=== PATIENT | male | born 1945 | race Caucasian/White ===

== ENCOUNTER → 2018-04-05 07:21 | Outpatient (CLI) | payer MEDICARE, OTHER, SELFPAY ==
[2018-04-05 07:56] LABS: Add Manual Diff / Slide Review NO; Basophils Percent Auto 0.7 % (0-2); Eosinophils Percent Auto 2.6 % (2-4); Hematocrit 40.9 % (41-53); Hemoglobin 13.3 g/dL (13.5-17.5); Lymphocytes Percent Auto 24.4 % (25-40); Mean Corpuscular HGB Conc 32.4 % (30-36); Mean Corpuscular Hemoglobin 25.4 PG (26-34); Mean Corpuscular Volume 78.2 fL (80-100); Monocytes Percent Auto 9.2 % (3-14); Neutrophils Absolute Auto 4600 /uL (3000-5900); Neutrophils Percent Auto 63.1 % (50-75); Platelet Count 215 X10^3/uL (150-400); Red Blood Cell Count 5.23 X10^6/uL (4.5-5.9); Red Cell Distribution Width 15.7 % (11.6-14.8); White Blood Cell Count 7.3 X10^3/uL (4.5-11.0)
[2018-04-05 09:33] LABS: Alanine Aminotransferase 29 IU/L (21-72); Albumin 4.1 g/dL (3.5-5.0); Albumin Globulin Ratio 1.6 (1.0-2.8); Alkaline Phosphatase 80 U/L (38-126); Aspartate Aminotransferase 22 IU/L (17-59); Bilirubin Total 0.5 mg/dL (0.2-1.3); Blood Urea Nitrogen 20 mg/dL (9-20); Calcium 9.4 mg/dL (8.4-10.2); Carbon Dioxide 28 mmol/L (22-32); Chloride 103 mmol/L (98-107); Cholesterol 193 mg/dL (140-199); Estimated Glomerular Filt Rate > 60.0 mL/min (>60); Globulin 2.6 g/dL (1.7-4.1); Glucose 96 mg/dL (80-110); HDL Cholesterol 38 mg/dL (40-60); HEMOLYSIS < 15 (0-50); LDL Cholesterol Calculated 126 mg/dL (<100); Potassium 4.5 mmol/L (3.4-5.1); Sodium 141 mmol/L (137-145); Total Protein 6.7 g/dL (6.3-8.2); Triglycerides 145 mg/dL (35-150)
[2018-04-05 09:57] LABS: Prostate Specific Antigen 0.746 ng/mL (0.10-4.00)
== END ==
PROVIDERS: PCP Family Medicine; Visit Provider Family Medicine
DX: E78.5 Hyperlipidemia, unspecified (principal); Z12.5 Encounter for screening for malignant neoplasm of prostate
CPT/HCPCS: 36415; 80053; 80061; 84153; 85025

== ENCOUNTER → 2019-01-06 07:48 | Outpatient (CLI) | payer MEDICARE, OTHER, SELFPAY ==
[2019-01-06 08:22] LABS: Hematocrit 47.9 % (41-53); Hemoglobin 16.2 g/dL (13.5-17.5); Mean Corpuscular HGB Conc 33.7 % (30-36); Mean Corpuscular Hemoglobin 28.3 PG (26-34); Platelet Count 211 X10^3/uL (150-400); Red Cell Distribution Width 14.8 % (11.6-14.8); White Blood Cell Count 6.7 X10^3/uL (4.5-11.0)
[2019-01-06 08:42] LABS: HEMOLYSIS < 15 (0-50); Iron 129 ug/dL (49-181)
[2019-01-06 08:45] LABS: Alanine Aminotransferase 40 IU/L (21-72); Albumin 4.4 g/dL (3.5-5.0); Albumin Globulin Ratio 1.5 (1.0-2.8); Alkaline Phosphatase 85 U/L (38-126); Aspartate Aminotransferase 29 IU/L (17-59); BUN Creatinine Ratio 22.2 (6-22); Bilirubin Total 0.9 mg/dL (0.2-1.3); Blood Urea Nitrogen 20 mg/dL (9-20); Calcium 9.3 mg/dL (8.4-10.2); Carbon Dioxide 26 mmol/L (22-32); Chloride 105 mmol/L (98-107); Estimated Glomerular Filt Rate > 60.0 mL/min (>60); Globulin 2.9 g/dL (1.7-4.1); Glucose 105 mg/dL (80-110); HEMOLYSIS < 15 (0-50); Potassium 4.2 mmol/L (3.4-5.1); Sodium 141 mmol/L (137-145); Total Protein 7.3 g/dL (6.3-8.2)
[2019-01-06 08:59] LABS: Vitamin D 25 Hydroxy (D3) 33.8 ng/mL (30.0-100.0)
[2019-01-06 09:14] LABS: Prostate Specific Antigen 0.703 ng/mL (0.10-4.00)
[2019-01-06 09:25] LABS: Percent Iron Saturation 32 % (20-50); Total Iron Binding Capacity 401 ug/dL (261-462); Transferrin 320 mg/dL (206-381)
[2019-01-06 09:41] LABS: Ferritin 40.3 ng/mL (17.9-464)
== END ==
PROVIDERS: PCP Family Medicine; Visit Provider Student in an Organized Health Care Education/Training Program
DX: E55.9 Vitamin D deficiency, unspecified (principal); N40.0 Benign prostatic hyperplasia without lower urinary tract symptoms; Z86.39 Personal history of other endocrine, nutritional and metabolic disease; E78.5 Hyperlipidemia, unspecified; I10 Essential (primary) hypertension; K21.9 Gastro-esophageal reflux disease without esophagitis; Z79.899 Other long term (current) drug therapy
CPT/HCPCS: 36415; 80053; 82306; 82728; 83540; 83550; 84153; 85027

== ENCOUNTER 2019-03-20 11:30 | Emergency (ER) | payer MEDICARE, OTHER, SELFPAY ==
[2019-03-20 11:33] VITALS: BP 148/64; PULSE 120; RESP 20; TEMP 36.8; O2SAT 97; BMI 31.3
[2019-03-20] MEDS: EPINEPHrine 1 MG/ML AMPUL 0.3 MG IM (11:45)
[2019-03-20] MEDS: diphenhydrAMINE 50 MG/ML VIAL IV (11:45)
[2019-03-20] MEDS: DEXAMETHASONE 10 MG/ML VIAL 20 MG IV (11:45)
[2019-03-20] MEDS: FAMOTIDINE 20 MG/50 ML PIGGYBACK 200 MG IV (11:45)
--- NOTE | 2019-03-20 11:57 | ED.ALLEREA ---
HPI - Allergic Reaction General Chief complaint: Allergic Reaction Stated complaint: STUNG BY THREE BEES, ALLERGIC Time Seen by Provider: 03/20/19 11:43 Source: patient Mode of arrival: ambulatory Limitations: no limitations History of Present Illness HPI narrative: Patient comes emergency department complaining of itching over his whole body after being stung by 3 bees. Patient states he has a history of a more severe bee sting allergy with swelling of the oropharyngeal structures about 12 years ago. He does note however that that bee sting was on his face. Patient states that the sting happened approximately 30 minutes ago, and that he has not had any feeling of swelling in his throat, lips, or tongue. He has not noticed a rash. Patient states he was feeling just fine prior to the incident. No nausea or vomiting. No chest pain or shortness of breath. No lightheadedness. No other complaints at this time. No other allergies that he knows of. Related Data Home Medications Medication Instructions Recorded Confirmed Coenzyme Q10 (#CO Q-10) 200 mg PO QDAY #0 07/01/11 01/13/19 Cu/Se/Vit A/Vit C/Vit E/Zinc 1 tab PO QDAY #0 07/01/11 01/13/19 (#OCUVITE) Fish Oil (#OMEGA-3 FISH OIL) 1,200 mg PO QDAY #0 08/07/11 01/13/19 Previous Rx's Medication Instructions Recorded fluticasone propionate [Flovent 2 puff INH BID #1 inh 09/11/17 HFA] albuterol sulfate HFA 90 1 puff INHALATION Q6H #6.7 gram 02/09/18 mcg/actuation aerosol inhaler esomeprazole magnesium 20 mg 20 mg PO DAILY #30 cap 02/09/18 capsule,delayed release meloxicam 15 mg tablet 15 mg PO DAILY #30 tab 02/09/18 pravastatin 80 mg tablet 80 mg PO QDAY #90 tab 04/16/18 baclofen 10 mg tablet 10 mg PO BID PRN #60 tab 08/03/18 prednisone 60 mg PO DAILY #9 tab 03/20/19 Allergies Allergy/AdvReac Type Severity Reaction Status Date / Time bee venom protein (honey bee) Allergy Severe TROUBLE Verified 03/20/19 12:11 [BEE VENOM PROTEIN (HONEY BREATHING BEE)] Review of Systems Constitutional Denies chills, Denies fever(s), Denies lethargy and Denies weakness Eyes Denies change in vision, Denies eye discharge, Denies irritation and Denies loss of vision ENT Ears, Nose, Mouth, and Throat: Denies change in voice, Denies neck pain and Denies sore throat Cardiovascular Denies chest pain, Denies irregular heart rhythm, Denies lightheadedness, Denies palpitations, Denies dyspnea, Denies dyspnea on exertion and Denies orthopnea Respiratory Denies cough, Denies dyspnea, Denies dyspnea on exertion and Denies wheezing Gastrointestinal Gastrointestinal: Denies abdominal pain, Denies change in bowel habits, Denies diarrhea, Denies nausea and Denies vomiting Genitourinary Denies hematuria, Denies flank pain, Denies urinary incontinence and Denies urinary urgency Musculoskeletal Denies neck pain Integumentary/Breasts Reports pruritus, Denies erythema, Denies rash and Denies wounds Neurologic Denies confusion, Denies loss of vision and Denies weakness Psychiatric Denies anxiety, Denies confusion, Denies depression, Denies homicidal ideation and Denies suicidal ideation Endocrine Denies palpitations Hematologic/Lymphatic Denies easy bruising Allergic/Immunologic Denies wheezing [facility] Medical History History of iron deficiency (Chronic) Right wrist pain (Chronic) Ear canal dryness (Chronic) COPD (chronic obstructive pulmonary disease) (Chronic 2012) Hearing loss (Chronic) Tinnitus (Chronic) Chronic low back pain (Chronic) Hyperlipidemia (Chronic) GERD (gastroesophageal reflux disease) (Chronic) Gastric ulcer (Resolved) Vitreous detachment (Resolved) Polymyalgia rheumatica (Suspected 05/25/14) Allergic rhinitis (Chronic Unknown) BPH (benign prostatic hyperplasia) (Chronic Unknown) Chronic back pain (Chronic ~1970) GERD (gastroesophageal reflux disease) (Chronic 1999) Hearing loss (Chronic 1966) Hyperlipemia (Chronic Unknown) Osteoarthritis (Chronic Unknown) Polymyalgia rheumatica (Chronic 2014) Rheumatoid arthritis (Chronic 2007) Sleep apnea (Chronic Unknown) Tinnitus of both ears (Chronic 1966) Chickenpox (Resolved 1953) Colon polyps (Resolved 1997) Measles (Resolved 1954) Mumps (Resolved 1955) Surgical History History of surgery on arm (Acute) History of carpal tunnel release (Resolved 2015) History of vasectomy Hx of transurethral resection of prostate (Resolved 2010) Family History Mother Heart disease Father No problems noted. Social History marital status: household members: spouse lives independently: Yes education level: college Smoking Status: Former smoker alcohol intake: former substance use type: does not use Family History Mother Heart disease Father No problems noted. Social History marital status: household members: spouse lives independently: Yes education level: college Smoking Status: Former smoker alcohol intake: former substance use type: does not use Exam Initial Vital Signs Initial Vital Signs: Vital Signs Temperature 98.3 F 03/20/19 11:33 Pulse Rate 120 H 03/20/19 11:33 Respiratory Rate 20 03/20/19 11:33 Blood Pressure 148/64 H 03/20/19 11:33 Pulse Oximetry 97 03/20/19 11:33 Const General: cooperative and well developed Nutritional Appearance: well nourished Orientation: alert, awake, oriented x3 and not confused [facility] Head: normocephalic and atraumatic Ears: external ears normal Nose: external nose normal and No nasal discharge Face and sinus: face symmetric and No dry mucous membranes Mouth: oral mucosae normal and moist mucous membranes Teeth and gingiva: dentition normal Throat: tonsils normal and uvula midline (No edema) Eyes General: appearance normal, both eyes and all related structures Eyelids: eyelids normal Conjunctivae: conjunctivae normal Sclera: sclerae normal Pupils: PERRL EOM: EOM intact bilaterally Neck Neck: normal visual inspection, trachea midline, No lymphadenopathy, No midline deformity and No JVD Lymphatic: No lymphedema Chest Chest: normal inspection of the chest Resp Effort & Inspection: normal respiratory effort, able to speak in complete sentences, no respiratory distress and no use of accessory muscles Auscultation: clear to auscultation bilaterally, no rales, no rhonchi and no wheezes Cardio Rate: regular rate Rhythm: regular rhythm Heart Sounds: no click, no gallops, no murmurs and no rubs Pulses: normal peripheral pulses GI Inspection: non-distended Palpation: soft, no hepatosplenomegaly, No guarding, No pulsatile mass and No tender Auscultation: normal bowel sounds Back/Spine/Pelvis Back: No CVA tenderness Cervical Spine: cervical ROM normal and No pain with cervical ROM Thoracic/Lumbar Spine: thoracic and lumbar spine normal to inspection Skin General: no rashes or lesions noted, No jaundice and No petechiae Neuro General: alert, oriented x3, gait normal and no focal motor deficits Speech: speech normal Extrem General: full ROM, no clubbing, cyanosis or edema, no pedal edema and no calf tenderness Psych Appearance: well kempt Mental Status: mental status grossly normal Attitude: cooperative Thought Content: normal and suicidality Judgment: judgment good Course Course Narrative: I did not see any evidence of impending anaphylaxis at this time, but given the patient's history of this with bee sting, I did decide to treat him with IV Benadryl, Decadron, Pepcid, and IM epi, as a precaution. The patient was observed in the emergency department, with no worsening of symptoms. I did prescribe him prednisone, and he may continue to take [id number] Benadryl, as needed for symptoms. The patient has not needed to use an EpiPen in many years, and stated that the 1 he does have is 5 years . Given that the patient did not have any evidence of an anaphylactic reaction today, even 30 minutes after this stings, and that he has not made use of or needing an EpiPen in the last 12 years, I did not feel that the patient needed an EpiPen at this time, as he does not have any other history of possible anaphylactic reaction to anything else. We have discussed home management of the symptoms, as well as the usual indications for return. Orders Ordered: Discontinued Medications Dexamethasone (Decadron) 20 mg IV NOW ONE Stop: 03/20/19 11:58 Last Admin: 03/20/19 11:45 Dose: 20 mg Diphenhydramine HCl (Benadryl) 50 mg IV NOW ONE Stop: 03/20/19 11:59 Last Admin: 03/20/19 11:45 Dose: 50 mg Epinephrine HCl (Adrenalin) 0.3 mg IM NOW ONE Stop: 03/20/19 12:00 Last Admin: 03/20/19 11:45 Dose: 0.3 mg Famotidine (Pepcid) 20 mg in 50 mls @ 200 mls/hr IV NOW ONE Stop: 03/20/19 12:12 Last Infusion: 03/20/19 12:15 Dose: 0 mls/hr Admin: 03/20/19 11:45 Dose: 200 mls/hr Vital Signs - 8 hr 03/20/19 11:33 03/20/19 12:18 03/20/19 13:08 Temperature 98.3 F Pulse Rate 120 H 91 H 85 Respiratory Rate 20 15 Blood Pressure 148/64 H Blood Pressure [Left Arm] 98/74 88/56 L Pulse Oximetry 97 95 97 03/20/19 13:13 Temperature Pulse Rate 86 Respiratory Rate 16 Blood Pressure 109/78 Blood Pressure [Left Arm] Pulse Oximetry 99 MDM - Allergic Reaction Medical Records Attestation: I reviewed the patient's medical records. Discharge Plan Departure Patient Disposition: Home Clinical Impression: Allergic reaction Qualifiers: Encounter type: initial encounter Qualified Code(s): T78.40XA - Allergy, unspecified, initial encounter Discharge Date/Time: 03/20/19 13:15 Interventions: ED Discharge Assessment Last Done: 03/20/19 13:13 Instructions: DI for General Allergic Reactions Activity Restrictions/Additional Instructions: Your prescription for prednisone has been sent to [facility]. You may take this and Benadryl 25 mg every 6 hours, until your symptoms resolve. Prescriptions: New prednisone 20 mg tablet 60 mg PO DAILY Qty: 9 RF: 0 No Action albuterol sulfate [Ventolin HFA] 90 mcg/actuation HFA aerosol inhaler 1 puff INHALATION Q6H Qty: 6.7 RF: 0 esomeprazole magnesium [Nexium] 20 mg capsule,delayed release(DR/EC) 20 mg PO DAILY Qty: 30 RF: 0 meloxicam 15 mg tablet 15 mg PO DAILY Qty: 30 RF: 5 Coenzyme Q10 (#CO Q-10) 200 mg PO QDAY Qty: 0 RF: 0 Cu/Se/Vit A/Vit C/Vit E/Zinc (#OCUVITE) 1 tab PO QDAY Qty: 0 RF: 0 Fish Oil (#OMEGA-3 FISH OIL) 1,200 mg PO QDAY Qty: 0 RF: 0 fluticasone propionate [Flovent HFA] 12 GM HFA aerosol inhaler 2 puff INH BID Qty: 1 RF: 0 pravastatin [Pravachol] 80 mg tablet 80 mg PO QDAY Qty: 90 RF: 3 baclofen 10 mg tablet 10 mg PO BID PRN (Reason: muscle spasm) Qty: 60 RF: 5 Referrals: Karsten Whittaker MD [Primary Care Provider] -
[2019-03-20 12:18] VITALS: BP 98/74; PULSE 91; O2SAT 95
[2019-03-20 13:08] VITALS: BP 88/56; PULSE 85; RESP 15; O2SAT 97
[2019-03-20 13:13] VITALS: BP 109/78; PULSE 86; RESP 16; O2SAT 99
== END 2019-03-20 13:15 | disposition home or self-care (01) ==
PROVIDERS: Emergency Provider Emergency Medicine; PCP Student in an Organized Health Care Education/Training Program
DX: T78.40XA Allergy, unspecified, initial encounter (principal)
CPT/HCPCS: 96365; 96372; 96375; 99283; 99284; J0171; J1100; J1200

== ENCOUNTER 2019-08-18 06:37 | Emergency (ER) | payer MEDICARE, OTHER, SELFPAY ==
[2019-08-18 06:52] VITALS: BP 132/85; PULSE 84; RESP 22; O2SAT 94; BMI 30.8
--- NOTE | 2019-08-18 07:12 | ED.SOB ---
HPI - SOB/Dyspnea General Chief Complaint: Shortness of Breath/Dyspnea Stated Complaint: has bronchitis, short of breath feet swelling Time Seen by Provider: 08/18/19 07:09 Source: patient Mode of arrival: Ambulatory Limitations: no limitations History of Present Illness HPI Narrative: Patient is a 74-year-old male with history of COPD presenting with cough ongoing for the last week and half. He says he has is clear phlegm he was seen at the walk-in clinic and finished azithromycin yesterday. He has really got any better. He is more short of breath is when he walks he denies any body aches or fevers. He says that he has had lower extremity edema as well and positive orthopnea at night. For the last week he needed to sleep sitting up. He denies any chest pain he has no prior history of congestive heart failure coronary artery disease. MD Complaint: shortness of breath and cough Onset (ago): week(s) Relieving factors: nothing Exacerbating factors: nothing Known history of: COPD Treatment prior to arrival: none Related Data Home oxygen amount: none Home Medications Medication Instructions Recorded Confirmed Coenzyme Q10 (#CO Q-10) 200 mg PO QDAY #0 07/01/11 08/11/19 Cu/Se/Vit A/Vit C/Vit E/Zinc 1 tab PO QDAY #0 07/01/11 08/11/19 (#OCUVITE) Fish Oil (#OMEGA-3 FISH OIL) 1,200 mg PO QDAY #0 08/07/11 08/11/19 ibuprofen 800 mg tablet 800 mg PO Q8H 08/02/19 08/11/19 Previous Rx's Medication Instructions Recorded fluticasone propionate [Flovent 2 puff INH BID #1 inh 09/11/17 HFA] albuterol sulfate 90 mcg/actuation 1 puff INHALATION Q6H #6.7 gram 02/09/18 aerosol inhaler esomeprazole magnesium 20 mg 20 mg PO DAILY #30 cap 02/09/18 capsule,delayed release pravastatin 80 mg tablet 80 mg PO QDAY #90 tab 04/22/19 diclofenac sodium 1 % topical gel 2 gram TOP QID #100 gram 08/02/19 albuterol sulfate 2.5 mg INHALATION Q4-6H PRN #75 ml 08/11/19 albuterol sulfate 90 mcg/actuation 2 puff INHALATION Q4-6H PRN #8 gram 08/11/19 aerosol inhaler azithromycin 250 mg tablet See Rx Instructions PO .COMPLEX #6 08/11/19 tab prednisone 50 mg PO DAILY #5 tab 08/18/19 Allergies Allergy/AdvReac Type Severity Reaction Status Date / Time bee venom protein (honey bee) Allergy Severe TROUBLE Verified 08/18/19 06:52 [BEE VENOM PROTEIN (HONEY BREATHING BEE)] Review of Systems Review of Systems Narrative: GENERAL: Denies chills, fatigue, malaise, fever, sweats, travel HEENT: Denies sinus pain, ear pain, sore throat, difficulty swallowing, neck pain RESPIRATORY: See HPI CARDIOVASCULAR: Denies chest pain, palpitations, orthopnea, edema GASTROINTESTINAL: Denies nausea, vomiting, abdominal pain, diarrhea, constipation, melena. : Denies dysuria, frequency, incontinence, hematuria, urinary retention, flank pain. MUSCULOSKELETAL: Denies weakness, joint pain, or bony pain SKIN: No rash, no erythema, no pruritus NEUROLOGIC: Denies weakness, dizziness, headache, numbness, change in speech, confusion PSYCHIATRIC: No concerning psychosocial issues. 12 point review of systems is negative except for those stated above and HPI Patient History Medical History Allergic rhinitis (Chronic Unknown) BPH (benign prostatic hyperplasia) (Chronic Unknown) Chickenpox (Resolved 1953) Chronic back pain (Chronic ~1970) Chronic low back pain (Chronic) Colon polyps (Resolved 1997) COPD (chronic obstructive pulmonary disease) (Chronic 2012) Ear canal dryness (Chronic) Gastric ulcer (Resolved) GERD (gastroesophageal reflux disease) (Chronic 1999) GERD (gastroesophageal reflux disease) (Chronic) Hearing loss (Chronic 1967) Hearing loss (Chronic) History of iron deficiency (Chronic) Hyperlipemia (Chronic Unknown) Hyperlipidemia (Chronic) Measles (Resolved 1954) Mumps (Resolved 1955) Osteoarthritis (Chronic Unknown) Polymyalgia rheumatica (Suspected 05/25/14) Polymyalgia rheumatica (Chronic 2013) Rheumatoid arthritis (Chronic 2007) Right wrist pain (Chronic) Sleep apnea (Chronic Unknown) Tinnitus (Chronic) Tinnitus of both ears (Chronic 1966) Vitreous detachment (Resolved) Surgical History History of carpal tunnel release (Resolved 2016) History of surgery on arm (Acute) History of vasectomy Hx of transurethral resection of prostate (Resolved 2010) Family History Mother Heart disease Father No problems noted. Social History marital status: household members: spouse lives independently: Yes education level: college Smoking Status: Former smoker alcohol intake: former substance use type: does not use Smoking Status: Former smoker alcohol intake frequency: a few times a month Substance Use Type: does not use Exam Initial Vital Signs Initial Vital Signs: Vital Signs Pulse Rate 84 08/18/19 06:52 Respiratory Rate 22 08/18/19 06:52 Blood Pressure 132/85 08/18/19 06:52 Pulse Oximetry 94 08/18/19 06:52 GENERAL: Well-appearing, well-nourished and in no acute distress. HEENT: Head atraumatic,EOMI, pupils reactive, face symmetric CARDIOVASCULAR: Regular rate and rhythm without murmurs, rubs or gallops. RESPIRATORY: speaks in full sentences wheezing bilaterally no tachypnea respiratory distress ABDOMEN: Soft, nontender. Normoactive bowel sounds all 4 quadrants. No guarding or rebound.ss EXTREMITIES: Normal range of motion, no clubbing or edema. Neurovascularly intact NEUROLOGICAL: Alert and oriented x4.Normal gait and speech. Cranial nerves II through XII grossly intact. SKIN: Warm, dry, no laceration, no petechiae, no rashes or lesions. Course Orders Ordered: ED Orders 08/18/19 07:05 B Type Natriuretic Peptide Stat Complete Blood Count AUTO DIFF Stat Comprehensive Metabolic Panel Stat Magnesium Stat Procalcitonin Stat Troponin & CK Cardiac Panel Stat 08/18/19 07:22 Consult to Respiratory Therapy Evaluate & Treat XR chest 2V Stat Discontinued Medications Albuterol/Ipratropium (Duoneb) 3 ml INH NOW ONE Stop: 08/18/19 07:22 Last Admin: 08/18/19 07:35 Dose: 3 ml Documented by: FERMIN Methylprednisolone (Solu-Medrol 125 Mg Vial) 125 mg IV NOW ONE Stop: 08/18/19 07:22 Last Admin: 08/18/19 07:33 Dose: 125 mg Documented by: BROOKE Vital Signs Vital signs: Vital Signs - 8 hr 08/18/19 06:52 08/18/19 07:35 08/18/19 08:30 Pulse Rate 84 87 Respiratory Rate 22 16 16 Blood Pressure 132/85 Blood Pressure [Left Arm] 116/67 Pulse Oximetry 94 96 95 MDM - SOB/Dyspnea Lab Data Attestation: I reviewed the patient's lab results. Result diagrams: 08/18/19 07:05 08/18/19 07:05 Labs: Lab Results 08/18/19 08/18/19 08/18/19 Range/Units 07:05 07:05 07:05 WBC 6.5 (4.5-11.0) X10^3/uL RBC 5.25 (4.5-5.9) X10^6/uL Hgb 14.9 (13.5-17.5) g/dL Hct 44.5 (41-53) % MCV 84.6 (80-100) fL MCH 28.4 (26-34) PG MCHC 33.6 (30-36) % RDW 14.4 (11.6-14.8) % Plt Count 183 (150-400) X10^3/uL Neut % (Auto) 57.5 (50-75) % Lymph % (Auto) 22.7 L (25-40) % [place] % (Auto) 8.6 (3-14) % Eos % (Auto) 10.0 H (2-4) % Baso % (Auto) 1.2 (0-2) % Neut # (Auto) 3700 (6686-0637) /uL Lymph # (Auto) 1500 (9021-3080) /uL [place] # (Auto) 600 (0-900) /uL Eos # (Auto) 600 H (0-450) /uL Baso # (Auto) 100 (0-100) /uL Sodium 140 (137-145) mmol/L Potassium 3.9 (3.4-5.1) mmol/L Chloride 106 (98-107) mmol/L Carbon Dioxide 26 (22-32) mmol/L BUN 22 H (9-20) mg/dL Creatinine 0.70 (0.66-1.25) mg/dL Estimated GFR > 60.0 (>60) mL/min BUN/Creatinine Ratio 31.4 H (6-22) Glucose 106 (80-110) mg/dL Calcium 9.2 (8.4-10.2) mg/dL Magnesium 2.0 (1.6-2.3) mg/dL Total Bilirubin 0.6 (0.2-1.3) mg/dL AST 29 (17-59) IU/L ALT 27 (<50) IU/L Alkaline Phosphatase 83 (38-126) U/L Total Creatine Kinase 237 H (55-170) U/L CK-MB (CK-2) 1.85 (<2.37) ng/mL CK-MB (CK-2) Rel Index 0.8 L (1.5-5.0) % Troponin I < 0.012 (0.01-0.034) ng/mL B-Natriuretic Peptide < 100 (<100) Total Protein 6.6 (6.3-8.2) g/dL Albumin 4.1 (3.5-5.0) g/dL Globulin 2.5 (1.7-4.1) g/dL Albumin/Globulin Ratio 1.6 (1.0-2.8) Procalcitonin < 0.05 (<0.5) ng/mL Imaging Data Chest x-ray: Radiologist's Impression: PROCEDURE: XR CHEST 2V INDICATIONS: sob with cough TECHNIQUE: 2 views of the chest were acquired. COMPARISON: [facility], CHEST 2 VIEW, 09/11/2017, 18:54. FINDINGS: Surgical changes and devices: None. Lungs and pleura: Lungs are clear. No pleural effusions or pneumothorax. Mediastinum: Mediastinal contours are normal. Mildly prominent central pulmonary arteries. No central venous congestion. Heart size is normal. Bones and chest wall: No suspicious bony abnormalities. Soft tissues appear unremarkable. IMPRESSION: 1. Mild hyperinflation suggesting asthma or emphysema. 2. No acute process. Dictated by: Zoraida Plascencia M.D. on 08/18/2019 at 8:05 ECG Data Attestation: I personally reviewed and interpreted this ECG as follows: Prior ECG tracings: available for review Interpretation: Normal sinus rhythm rate 78 p.r. interval 177 QRS [address] elevation depression or T-wave inversion MDM Narrative Medical decision making narrative: The patient had wheezing which improved with bronchodilators. He was placed on azithromycin and just finished procalcitonin is negative no leukocytosis. Will place him on prednisone for COPD exacerbation. Discharge Plan Departure Patient Disposition: Home Clinical Impression: COPD exacerbation Discharge Date/Time: 08/18/19 09:07 Activity Restrictions/Additional Instructions: *You have been diagnosed with COPD exacerbation *What to do: No sign of pneumonia on x-ray at this time no need for repeat antibiotics blood work is overall reassuring. *Continue to take medications as directed Albuterol inhaler 1-2 puffs every 4 hours if needed for coughing or shortness of Prednisone 50 mg once a day start tomorrow for the next 5 days---> [facility] [place] *Follow up with your primary care provider in 2-3 days *Return to ER if you should have increasing shortness of breath chest pain or any new, worsening or concerning symptoms Prescriptions: New prednisone 50 mg tablet 50 mg PO DAILY Qty: 5 RF: 0 No Action albuterol sulfate [Ventolin HFA] 90 mcg/actuation HFA aerosol inhaler 2 puff INHALATION Q4-6H PRN (Reason: shortness of breath or wheezing) Qty: 8 RF: 0 albuterol sulfate 2.5 mg /3 mL (0.083 %) solution for nebulization 2.5 mg INHALATION Q4-6H PRN (Reason: shortness of breath or wheezing) Qty: 75 RF: 0 azithromycin 250 mg tablet See Rx Instructions PO .COMPLEX Qty: 6 RF: 0 albuterol sulfate [Ventolin HFA] 90 mcg/actuation HFA aerosol inhaler 1 puff INHALATION Q6H Qty: 6.7 RF: 0 esomeprazole magnesium [Nexium] 20 mg capsule,delayed release(DR/EC) 20 mg PO DAILY Qty: 30 RF: 0 Coenzyme Q10 (#CO Q-10) 200 mg PO QDAY Qty: 0 RF: 0 Cu/Se/Vit A/Vit C/Vit E/Zinc (#OCUVITE) 1 tab PO QDAY Qty: 0 RF: 0 Fish Oil (#OMEGA-3 FISH OIL) 1,200 mg PO QDAY Qty: 0 RF: 0 fluticasone propionate [Flovent HFA] 12 GM HFA aerosol inhaler 2 puff INH BID Qty: 1 RF: 0 pravastatin [Pravachol] 80 mg tablet 80 mg PO QDAY Qty: 90 RF: 3 diclofenac sodium 1 % gel 2 gram TOP QID Qty: 100 RF: 0 ibuprofen 800 mg tablet 800 mg PO Q8H RF: 0 Referrals: Karsten Whittaker MD [Primary Care Provider] -
[2019-08-18] MEDS: ALBUTEROL/IPRATROPIUM 3 ML AMPUL INH ×2 (07:20→07:35)
--- NOTE | 2019-08-18 07:22 | DI.RAD.S_ITS ---
PROCEDURE: XR CHEST 2V INDICATIONS: sob with cough TECHNIQUE: 2 views of the chest were acquired. COMPARISON: [facility], , CHEST 2 VIEW, 09/11/2017, 18:54. FINDINGS: Surgical changes and devices: None. Lungs and pleura: Lungs are clear. No pleural effusions or pneumothorax. Mediastinum: Mediastinal contours are normal. Mildly prominent central pulmonary arteries. No central venous congestion. Heart size is normal. Bones and chest wall: No suspicious bony abnormalities. Soft tissues appear unremarkable. IMPRESSION: 1. Mild hyperinflation suggesting asthma or emphysema. 2. No acute process. Dictated by: Zoraida Plascencia M.D. on 08/18/2019 at 8:05 Approved by: Zoraida Plascencia M.D. on 08/18/2019 at 8:07
[2019-08-18] MEDS: methylPREDNISolone 125 MG/2 ML VIAL IV (07:33)
[2019-08-18 07:35] VITALS: RESP 16; O2SAT 96
[2019-08-18 07:36] LABS: Add Manual Diff / Slide Review NO; Basophils Absolute Auto 100 /uL (0-100); Basophils Percent Auto 1.2 % (0-2); Eosinophils Absolute Auto 600 /uL (0-450); Hematocrit 44.5 % (41-53); Hemoglobin 14.9 g/dL (13.5-17.5); Lymphocytes Absolute Auto 1500 /uL (1100-4500); Lymphocytes Percent Auto 22.7 % (25-40); Mean Corpuscular HGB Conc 33.6 % (30-36); Mean Corpuscular Hemoglobin 28.4 PG (26-34); Mean Corpuscular Volume 84.6 fL (80-100); Monocytes Absolute Auto 600 /uL (0-900); Monocytes Percent Auto 8.6 % (3-14); Neutrophils Absolute Auto 3700 /uL (1500-7000); Neutrophils Percent Auto 57.5 % (50-75); Platelet Count 183 X10^3/uL (150-400); Red Blood Cell Count 5.25 X10^6/uL (4.5-5.9); Red Cell Distribution Width 14.4 % (11.6-14.8); White Blood Cell Count 6.5 X10^3/uL (4.5-11.0)
--- NOTE | 2019-08-18 07:38 | PC.NURSE ---
Received report from [facility] Stringer. Pt reports 10 days of SOB and increased leg swelling and inability to lay flat. denies h/o CHF. Lungs with coarse exp wheeze. pt already rec'd duo x 1. Being taken for CXR at this time. Speaking in complete sentences without difficulty.
[2019-08-18 07:41] LABS: Alanine Aminotransferase 27 IU/L (<50); Albumin 4.1 g/dL (3.5-5.0); Albumin Globulin Ratio 1.6 (1.0-2.8); Alkaline Phosphatase 83 U/L (38-126); Aspartate Aminotransferase 29 IU/L (17-59); BUN Creatinine Ratio 31.4 (6-22); Bilirubin Total 0.6 mg/dL (0.2-1.3); Blood Urea Nitrogen 22 mg/dL (9-20); Calcium 9.2 mg/dL (8.4-10.2); Carbon Dioxide 26 mmol/L (22-32); Chloride 106 mmol/L (98-107); Creatine Kinase 237 U/L (55-170); Estimated Glomerular Filt Rate > 60.0 mL/min (>60); Globulin 2.5 g/dL (1.7-4.1); Glucose 106 mg/dL (80-110); HEMOLYSIS < 15 (0-50); Potassium 3.9 mmol/L (3.4-5.1); Sodium 140 mmol/L (137-145); Total Protein 6.6 g/dL (6.3-8.2)
[2019-08-18 07:51] LABS: Troponin I < 0.012 ng/mL (0.01-0.034)
[2019-08-18 07:55] LABS: CKMB % Relative Index 0.8 % (1.5-5.0); Creatine Kinase MB 1.85 ng/mL (<2.37)
[2019-08-18 08:10] LABS: Procalcitonin < 0.05 ng/mL (<0.5)
[2019-08-18 08:22] LABS: B Type Natriuretic Peptide < 100 (<100)
[2019-08-18 08:30] VITALS: BP 116/67; PULSE 87; RESP 16; O2SAT 95
== END 2019-08-18 09:07 | disposition home or self-care (01) ==
PROVIDERS: Emergency Provider Emergency Medicine; PCP Student in an Organized Health Care Education/Training Program
DX: J44.1 Chronic obstructive pulmonary disease with (acute) exacerbation (principal)
CPT/HCPCS: 36415; 71046; 80053; 82550; 82553; 83735; 83880; 84145; 84484; 85025; 93005; 94640; 96374; 99284; 99285; J2930

== ENCOUNTER 2020-01-11 08:25 | Emergency (ER) | payer MEDICARE, OTHER, SELFPAY ==
[2020-01-11 08:25] VITALS: BP 164/89; PULSE 91; RESP 18; TEMP 36.1; O2SAT 97; BMI 31.0
--- NOTE | 2020-01-11 08:47 | ED.GENADULT ---
HPI - General Adult General Chief complaint: Ear Stated complaint: Off balance, Right ear is clogged/ Headaches Time Seen by Provider: 01/11/20 08:39 Source: patient Mode of arrival: Ambulatory Limitations: no limitations History of Present Illness HPI narrative: 75-year-old male here for evaluation of what he thinks is a blocked right ear. Also having some discomfort and some balance issues. He has had this issue in the past. He does wear hearing aids. He did try cleaning it at home but was unsuccessful. He states he has had did have his ears flushed in the past and he thinks that is what needs to happen today. Related Data Home Medications Medication Instructions Recorded Confirmed Coenzyme Q10 (#CO Q-10) 200 mg PO QDAY #0 07/01/11 10/26/19 Cu/Se/Vit A/Vit C/Vit E/Zinc 1 tab PO QDAY #0 07/01/11 10/26/19 (#OCUVITE) Fish Oil (#OMEGA-3 FISH OIL) 1,200 mg PO QDAY #0 08/07/11 10/26/19 Previous Rx's Medication Instructions Recorded esomeprazole magnesium 20 mg 20 mg PO DAILY #30 cap 02/09/18 capsule,delayed release pravastatin 80 mg tablet 80 mg PO QDAY #90 tab 04/22/19 albuterol sulfate 90 mcg/actuation 2 puff INHALATION Q4-6H PRN #18 10/26/19 aerosol inhaler gram Allergies Allergy/AdvReac Type Severity Reaction Status Date / Time bee venom protein (honey bee) Allergy Severe TROUBLE Verified 10/26/19 11:21 [BEE VENOM PROTEIN (HONEY BREATHING BEE)] Review of Systems Constitutional Constitutional: Denies fever(s) and Denies headache(s) ENT Ears, Nose, Mouth, and Throat: Denies headache(s) and Reports disequilibrium Comments: Right ear fullness Cardiovascular Cardiovascular: Denies dyspnea Respiratory Respiratory: Denies dyspnea Neurologic Neurologic: Denies headache(s) and Reports disequilibrium Hematologic/Lymphatic Hematologic/Lymphatic: Denies easy bleeding and Denies easy bruising Patient History Medical History Allergic rhinitis (Chronic Unknown) BPH (benign prostatic hyperplasia) (Chronic Unknown) Chickenpox (Resolved 1953) Chronic back pain (Chronic ~1969) Chronic low back pain (Chronic) Colon polyps (Resolved 1997) COPD (chronic obstructive pulmonary disease) (Chronic 2012) Ear canal dryness (Chronic) Gastric ulcer (Resolved) GERD (gastroesophageal reflux disease) (Chronic 1999) GERD (gastroesophageal reflux disease) (Chronic) Hearing loss (Chronic 1967) Hearing loss (Chronic) History of iron deficiency (Chronic) Hyperlipemia (Chronic Unknown) Hyperlipidemia (Chronic) Measles (Resolved 1954) Mumps (Resolved 1955) Osteoarthritis (Chronic Unknown) Polymyalgia rheumatica (Suspected 05/25/14) Polymyalgia rheumatica (Chronic 2013) Rheumatoid arthritis (Chronic 2007) Right wrist pain (Chronic) Sleep apnea (Chronic Unknown) Tinnitus (Chronic) Tinnitus of both ears (Chronic 1966) Vitreous detachment (Resolved) Social History marital status: household members: spouse lives independently: Yes education level: college Smoking Status: Former smoker alcohol intake: former substance use type: does not use Smoking Status: Former smoker alcohol intake frequency: a few times a month Substance Use Type: does not use Exam Initial Vital Signs Initial Vital Signs: Vital Signs Temperature 97.0 F L 01/11/20 08:25 Pulse Rate 91 H 01/11/20 08:25 Respiratory Rate 18 01/11/20 08:25 Blood Pressure 164/89 H 01/11/20 08:25 Pulse Oximetry 97 01/11/20 08:25 Const General: cooperative and comfortable HENMT Head: normal to inspection Ears: external ears normal, EAC's normal and other (Bilateral EACs obstructed by cerumen) Resp Effort & Inspection: normal respiratory effort Skin Lesions: no lesions Rashes: no rashes Neuro General: alert, awake and oriented x3 Extrem General: normal to inspection and capillary refill normal Procedures Foreign Body EAR Location: ear canal (R) Foreign Body Suspected: other (Cerumen) TM intact pre-procedure: unable to visualize Foreign Body Removed: yes Foreign Body Removal Technique: irrigation Tympanic Membrane Intact Post Procedure: Yes Patient Tolerated Procedure: Well Course Vital Signs Vital signs: Vital Signs - 8 hr 01/11/20 08:25 Temperature 97.0 F L Pulse Rate 91 H Respiratory Rate 18 Blood Pressure 164/89 H Pulse Oximetry 97 Medical Decision Making MDM Narrative Medical decision making narrative: Patient with cerumen impaction bilaterally. After irrigation the right impaction was completely removed. The left impaction was partially removed however was able to visualize the tympanic membrane afterwards. Patient tolerated the procedure well. We discussed return precautions and follow-up instructions. He expressed understanding and agreement. Discharge Plan Departure Patient Disposition: Home Clinical Impression: Bilateral impacted cerumen Instructions: Cerumen Impaction Activity Restrictions/Additional Instructions: Your ears may be sensitive for the next 1-2 days. You may even get a small amount of bleeding. This is all normal for this type of procedure. Recommend you contact your primary care provider for follow-up. Prescriptions: No Action esomeprazole magnesium [Nexium] 20 mg capsule,delayed release(DR/EC) 20 mg PO DAILY Qty: 30 RF: 0 Coenzyme Q10 (#CO Q-10) 200 mg PO QDAY Qty: 0 RF: 0 Cu/Se/Vit A/Vit C/Vit E/Zinc (#OCUVITE) 1 tab PO QDAY Qty: 0 RF: 0 Fish Oil (#OMEGA-3 FISH OIL) 1,200 mg PO QDAY Qty: 0 RF: 0 pravastatin [Pravachol] 80 mg tablet 80 mg PO QDAY Qty: 90 RF: 3 albuterol sulfate [Ventolin HFA] 90 mcg/actuation HFA aerosol inhaler 2 puff INHALATION Q4-6H PRN (Reason: shortness of breath or wheezing) Qty: 18 RF: 11 Referrals: Karsten Whittaker MD [Primary Care Provider] -
[2020-01-11 09:20] VITALS: BP 143/81; PULSE 80; O2SAT 95
--- NOTE | 2020-01-11 09:30 | PC.NURSE ---
dr. driver used curet and nurse flushed ears with normal saline.
== END 2020-01-11 09:20 | disposition home or self-care (01) ==
PROVIDERS: Emergency Provider Emergency Medicine; PCP Student in an Organized Health Care Education/Training Program
DX: H61.23 Impacted cerumen, bilateral (principal)
CPT/HCPCS: 69209; 99283

== ENCOUNTER → 2020-04-05 11:28 | Outpatient (CLI) | payer MEDICARE, OTHER, SELFPAY ==
--- NOTE | 2020-04-05 11:31 | DI.RAD.S_ITS ---
PROCEDURE: XR HIP W PEL IF DONE LT 2V INDICATIONS: left hip pain when sitting TECHNIQUE: AP pelvis with lateral view(s) of the left hip(s). COMPARISON: None. FINDINGS: Bones: No fractures or dislocations. Pelvic ring appears intact. No suspicious bony lesions. Mild symmetric hip joint degeneration. Soft tissues: The visualized bowel gas pattern is normal. No suspicious soft tissue calcifications. IMPRESSION: Mild symmetric hip joint degeneration. Dictated by: Barbara Lewis M.D. on 04/05/2020 at 15:37 Approved by: Barbara Lewis M.D. on 04/05/2020 at 15:38
[2020-04-05 13:37] LABS: Prostate Specific Antigen 0.713 ng/mL (0.10-4.00)
[2020-04-05 13:55] LABS: Vitamin B12 > 1000 pg/mL (239-931)
== END ==
PROVIDERS: PCP Student in an Organized Health Care Education/Training Program; Referring Provider Student in an Organized Health Care Education/Training Program; Visit Provider Student in an Organized Health Care Education/Training Program
DX: M25.552 Pain in left hip (principal); Z90.79 Acquired absence of other genital organ(s); Z98.890 Other specified postprocedural states; G62.9 Polyneuropathy, unspecified
CPT/HCPCS: 36415; 73502; 82607; 84153

== ENCOUNTER → 2020-09-25 07:10 | Outpatient (CLI) | payer MEDICARE, OTHER, SELFPAY ==
[2020-09-25 09:00] LABS: Add Manual Diff / Slide Review NO; Basophils Absolute Auto 0 /uL (0-100); Basophils Percent Auto 0.4 % (0-2); Eosinophils Absolute Auto 200 /uL (0-450); Eosinophils Percent Auto 2.9 % (2-4); Hematocrit 45.2 % (41-53); Hemoglobin 15.2 g/dL (13.5-17.5); Lymphocytes Absolute Auto 1500 /uL (1100-4500); Lymphocytes Percent Auto 25.6 % (25-40); Mean Corpuscular HGB Conc 33.6 % (30-36); Mean Corpuscular Hemoglobin 28.6 PG (26-34); Mean Corpuscular Volume 85.1 fL (80-100); Monocytes Absolute Auto 600 /uL (0-900); Monocytes Percent Auto 9.8 % (3-14); Neutrophils Absolute Auto 3600 /uL (1500-7000); Neutrophils Percent Auto 61.3 % (50-75); Platelet Count 203 X10^3/uL (150-400); Red Blood Cell Count 5.31 X10^6/uL (4.5-5.9); Red Cell Distribution Width 13.8 % (11.6-14.8); White Blood Cell Count 5.9 X10^3/uL (4.5-11.0)
[2020-09-25 09:33] LABS: HEMOLYSIS < 15 (0-50)
[2020-09-25 09:35] LABS: Alanine Aminotransferase 27 IU/L (<50); Albumin 4.2 g/dL (3.5-5.0); Albumin Globulin Ratio 1.4 (1.0-2.8); Alkaline Phosphatase 75 U/L (38-126); Aspartate Aminotransferase 30 IU/L (17-59); Bilirubin Total 0.5 mg/dL (0.2-1.3); Blood Urea Nitrogen 19 mg/dL (9-20); Carbon Dioxide 27 mmol/L (22-32); Chloride 106 mmol/L (98-107); Cholesterol 198 mg/dL (140-199); Estimated Glomerular Filt Rate > 60.0 mL/min (>60); Globulin 2.9 g/dL (1.7-4.1); Glucose 100 mg/dL (80-110); HDL Cholesterol 33 mg/dL (40-60); LDL Cholesterol Calculated 135 mg/dL (<100); Potassium 3.9 mmol/L (3.4-5.1); Sodium 139 mmol/L (137-145); Total Protein 7.1 g/dL (6.3-8.2); Triglycerides 148 mg/dL (35-150)
[2020-09-25 09:44] LABS: Hemoglobin A1C% w Est Avg Glu 5.7 % (4.0-6.0)
[2020-09-25 09:56] LABS: Prostate Specific Antigen Scrn 0.757 ng/mL (0.1-4.0)
[2020-09-25 10:34] LABS: Vitamin B12 927 pg/mL (239-931)
== END ==
PROVIDERS: PCP Family Medicine; Referring Provider Family Medicine; Visit Provider Family Medicine
DX: E78.00 Pure hypercholesterolemia, unspecified (principal); Z86.39 Personal history of other endocrine, nutritional and metabolic disease; G62.9 Polyneuropathy, unspecified; M35.3 Polymyalgia rheumatica; Z12.5 Encounter for screening for malignant neoplasm of prostate; Z90.79 Acquired absence of other genital organ(s); Z98.890 Other specified postprocedural states
CPT/HCPCS: 36415; 80053; 80061; 82607; 83036; 85025; G0103

== ENCOUNTER → 2020-11-30 10:08 | Outpatient (CLI) | payer MEDICARE, OTHER, SELFPAY ==
[2020-11-30 10:47] LABS: COVID19 -Nasal RAPID Negative (Negative)
== END ==
PROVIDERS: PCP Family Medicine; Visit Provider Surgery
DX: Z20.822 Contact with and (suspected) exposure to COVID-19 (principal)
CPT/HCPCS: 87635; C9803

== ENCOUNTER 2020-12-03 08:04 | Day surgery (SDC) | payer MEDICARE, OTHER, SELFPAY ==
--- NOTE | 2020-12-03 | PATH_ITS ---
[facility] [place] Accession Number: [id number] . 01 Material submitted: . PART A: colon - CECUM POLYP PART B: rectum - RECTUM POLYP . 01 Clinical history: . SDC . 02 Diagnosis: A. Cecum, Polyp, Biopsy: Tubular adenoma. . B. Rectum, Polyp, Biopsy: Tubular adenoma. MRV 12/06/2020 1103 Local . 02 Electronically signed: . Cheri Villa MD, Pathologist NPI- [id number] . 01 Gross description: . Part A: CECUM POLYP: Received in formalin are 2 fragment(s) of wade, soft tissue measuring 0.1 x 0.1 x 0.1 cm to 0.3 x 0.3 x 0.3 cm submitted entirely in 1 cassette(s) Part B: RECTUM POLYP: Received in formalin is 1 fragment(s) of wade, soft tissue measuring 0.4 x 0.2 x 0.2 cm submitted entirely in 1 cassette(s) /FRANK 12/04/2020 1942 Local . 02 Pathologist provided ICD-10: D12.0, D12.8 . 02 CPT . 997855, [id number] Performed at: [address] [facility] [address], [place], [place] [id number] MD Darisu Hill MD Phone: [phone] Performed at: 02 [facility] [address] [place], [place] [id number] MD Cheri Villa MD Phone: [phone]
[2020-12-03 08:21] VITALS: BP 150/85; PULSE 77; RESP 16; TEMP 36.3; O2SAT 97; BMI 29.5
[2020-12-03] MEDS: LACTATED RINGERS 1,000 ML 200 ML IV (08:21)
[2020-12-03] MEDS: MIDAZOLAM 5 MG/5 ML VIAL IV (08:59)
--- NOTE | 2020-12-03 09:44 | PM.HP.1 ---
History of Present Illness History of Present Illness Date Patient Seen: 12/03/20 Time Patient Seen: 09:44 Chief complaint: SDC Narrative: The patient presents for colorectal sreening. He has had a previous colonoscopy most recently 5 years ago which was significant for benign polyps. No personal or family history of colon cancer. On further history denies any recent gastrointestinal symptoms. No nausea, vomiting, abdominal pain, loss of appetite, unexplained weight loss, change in bowel habits, diarrhea, constipation, melena, hematochezia, or bright red blood per rectum. Patient History Medical History Acute neck pain Allergic rhinitis (Unknown) Back stiffness BPH (benign prostatic hyperplasia) (Unknown) Cervical somatic dysfunction Chickenpox (1953) Chronic back pain (~1969) Chronic low back pain Colon polyps (1997) COPD (chronic obstructive pulmonary disease) (2012) Ear canal dryness Gastric ulcer GERD (gastroesophageal reflux disease) (1999) GERD (gastroesophageal reflux disease) Hearing loss (1966) Hearing loss History of iron deficiency Hyperlipemia (Unknown) Hyperlipidemia Lumbar region somatic dysfunction Measles (1954) Mumps (1955) Osteoarthritis (Unknown) Pelvic somatic dysfunction Pes planus of both feet Polymyalgia rheumatica (05/25/14) Polymyalgia rheumatica (2014) Rheumatoid arthritis (2007) Right wrist pain Sacral region somatic dysfunction Segmental and somatic dysfunction of abdomen and other regions Sleep apnea (Unknown) Somatic dysfunction of lower extremity Thoracic region somatic dysfunction Tinnitus Tinnitus of both ears (1966) Vitreous detachment Surgical History History of carpal tunnel release (2015) History of surgery on arm History of vasectomy Hx of transurethral resection of prostate (2010) Family & Social History Family History Mother Heart disease Father No problems noted. Social History: household members spouse lives independently Yes Tobacco & Substance use: Smoking Status Former smoker alcohol intake current alcohol intake frequency a few times a week Substance Use Type does not use Meds Home Medications and Allergies Home Medications Medication Instructions Recorded Confirmed Type Coenzyme Q10 (#CO Q-10) 200 mg PO QDAY #0 07/01/11 12/03/20 History Cu/Se/Vit A/Vit C/Vit E/Zinc 1 tab PO QDAY #0 07/01/11 12/03/20 History (#OCUVITE) Fish Oil (#OMEGA-3 FISH OIL) 1,200 mg PO QDAY #0 08/07/11 12/03/20 History esomeprazole magnesium 20 mg 20 mg PO DAILY #30 cap 02/09/18 12/03/20 Rx capsule,delayed release albuterol sulfate 90 mcg/actuation 2 puff INHALATION Q4-6H PRN #18 10/26/19 12/03/20 Rx aerosol inhaler gram pravastatin 80 mg tablet 80 mg PO BEDTIME #90 tab 04/16/20 12/03/20 Rx alpha lipoic acid 600 mg capsule 600 mg PO DAILY 10/02/20 12/03/20 History cholecalciferol (vitamin D3) 125 125 mcg PO DAILY 10/02/20 12/03/20 History mcg (5,000 unit) capsule ferrous sulfate 325 mg (65 mg 325 mg PO DAILY 10/02/20 12/03/20 History iron) tablet mecobalamin (vitamin B12) 1,000 1,000 mcg PO DAILY 10/02/20 12/03/20 History mcg chewable tablet turmeric root extract 500 mg 1,000 mg PO DAILY 10/02/20 12/03/20 History capsule vitamin B complex 1 cap PO DAILY 10/02/20 12/03/20 History Allergies Allergy/AdvReac Type Severity Reaction Status Date / Time bee venom protein (honey bee) Allergy Severe TROUBLE Verified 12/03/20 08:15 [BEE VENOM PROTEIN (HONEY BREATHING BEE)] Review of Systems Review of Systems ROS: Yes All systems reviewed with the patient and are negative except as otherwise documented Exam Vital Signs (past 8 hours): - 12/03/20 08:21 Temperature 97.4 F L Pulse Rate 77 Respiratory Rate 16 Blood Pressure 150/85 H Pulse Oximetry 97 Oxygen Delivery Method Room Air Narrative Exam Narrative: General-no acute distress, adult male HEENT-moist mucous membranes, no scleral icterus Neck-supple, no lymphadenopathy Chest- non labored respirations Cardiac-regular rate no peripheral edema Abdomen-soft, nontender nondistended Extremities-warm, well perfused Neurological-alert and oriented, no focal deficits Assessment & Plan Assessment & Plan narrative: The patient requires colorectal screening and colonoscopy is recommended. Technical details were discussed. Risks, benefits, alternatives explained. Risks including but not limited to myocardial infarction, aspiration, bleeding, pain, missed lesion, incomplete examination, need for further radiographic studies, colonic perforation, and need for major abdominal surgery were discussed. All questions were answered to their satisfaction, and they are in agreement with this plan.
[2020-12-03] MEDS: fentaNYL 250 MCG/5 ML INJ IV (10:13)
--- NOTE | 2020-12-03 10:22 | P.OP.ENDO_ITS ---
Operative Date/Time/Diagnoses Date of procedure: 12/03/20 Time of procedure: 10:22 Pre-op diagnosis: Personal history of colonic polyps Post-op diagnosis: same Procedure & Clinicians Study performed: Colonoscopy Polypectomy Same procedure as scheduled: Yes Indications: 75-year-old man personal history of colonic polyps last colonoscopy 5 years ago presents for routine screening. Surgeon: Donnell Landeros Procedure Notes Procedure in detail: Medications: Conscious sedation using 6mg IV midazolam and 250mcg IV of fentanyl The history and physical was performed/updated and the patient is ASA class is 2. The procedure was discussed in detail with the patient. Potential risks complications including infection, bleeding, missed diagnosis, perforation, need for surgery, and were explained. Their questions were answered and informed consent was obtained. Patient was brought to the procedure room and placed standard monitoring equipment. The patient's vital signs were monitored continuously throughout the entire procedure. Prior to starting time-out was performed. The patient was placed in the left lateral recumbent position. Procedural sedation was administered. Examination began with a thorough inspection of the perianal area there was no evidence of fissures, fistulae, external hemorrhoids or cutaneous malignancy. The colonoscopy scope was then placed into the anal canal and was advanced to the cecum, which was identified by the ileocecal valve, the appendiceal orifice and the confluence of the taenia. The scope was then slowly withdrawn examining colon thoroughly in all directions, irrigating it of any r esidual stool. 3 mm polyp in the cecum removed with biopsy forceps 5 mm polyp in the rectum removed with biopsy forceps Sigmoid diverticulosis The patient tolerated the procedure well. They will be discharged once criteria are met. The prep was of good/excellent quality. The withdrawl time was 12 minutes. The sedation time was 27 minutes. Specimen(s): other (Rectum, cecum polyps) Impression: Colonic polyps Post-procedure Recommendations: Colonscopy in 5 years Disposition: same day surgery
[2020-12-03 10:25] VITALS: BP 149/76; PULSE 71; RESP 12; TEMP 36.9; O2SAT 96
[2020-12-03 10:28] VITALS: BP 128/77; PULSE 72; RESP 12; O2SAT 96
[2020-12-03 10:33] VITALS: BP 127/76; PULSE 78; RESP 20; O2SAT 97
[2020-12-03 10:38] VITALS: BP 122/80; PULSE 75; RESP 14; O2SAT 97
[2020-12-03 10:43] VITALS: BP 117/70; PULSE 72; RESP 14; TEMP 36.9; O2SAT 96
== END 2020-12-03 11:02 | disposition home or self-care (01) ==
PROVIDERS: PCP Family Medicine; Referring Provider Family Medicine; Visit Provider Surgery
PROC: 0DJD8ZZ Inspection of Lower Intestinal Tract, Via Natural or Artificial Opening Endoscopic (ICD-10-PCS; CPT 45378; principal; 2020-12-03 09:15)
DX: Z12.11 Encounter for screening for malignant neoplasm of colon (principal); Z86.010 Personal history of colon polyps; J44.9 Chronic obstructive pulmonary disease, unspecified; K21.9 Gastro-esophageal reflux disease without esophagitis; K57.30 Diverticulosis of large intestine without perforation or abscess without bleeding; D12.0 Benign neoplasm of cecum; D12.8 Benign neoplasm of rectum
CPT/HCPCS: 45380; 99152; 99153; J2250; J3010

== ENCOUNTER → 2021-03-11 07:20 | Outpatient (CLI) | payer MEDICARE, OTHER, SELFPAY ==
[2021-03-11 08:19] LABS: Add Manual Diff / Slide Review NO; Basophils Absolute Auto 0 /uL (0-100); Basophils Percent Auto 0.5 % (0-2); Eosinophils Absolute Auto 200 /uL (0-450); Eosinophils Percent Auto 3.1 % (2-4); Hematocrit 44.6 % (41-53); Hemoglobin 14.6 g/dL (13.5-17.5); Lymphocytes Absolute Auto 1800 /uL (1100-4500); Lymphocytes Percent Auto 28.8 % (25-40); Mean Corpuscular HGB Conc 32.8 % (30-36); Mean Corpuscular Volume 85.5 fL (80-100); Monocytes Absolute Auto 600 /uL (0-900); Monocytes Percent Auto 9.4 % (3-14); Neutrophils Absolute Auto 3700 /uL (1500-7000); Neutrophils Percent Auto 58.2 % (50-75); Platelet Count 199 X10^3/uL (150-400); Red Blood Cell Count 5.22 X10^6/uL (4.5-5.9); Red Cell Distribution Width 13.8 % (11.6-14.8); White Blood Cell Count 6.4 X10^3/uL (4.5-11.0)
[2021-03-11 08:34] LABS: Hemoglobin A1C% w Est Avg Glu 5.5 % (4.0-6.0)
[2021-03-11 08:41] LABS: Alanine Aminotransferase 27 IU/L (<50); Albumin 4.3 g/dL (3.5-5.0); Albumin Globulin Ratio 1.7 (1.0-2.8); Alkaline Phosphatase 77 U/L (38-126); Aspartate Aminotransferase 28 IU/L (17-59); BUN Creatinine Ratio 23.4 (6-22); Bilirubin Total 0.6 mg/dL (0.2-1.3); Blood Urea Nitrogen 18 mg/dL (9-20); Calcium 9.7 mg/dL (8.4-10.2); Carbon Dioxide 26 mmol/L (22-32); Chloride 106 mmol/L (98-107); Cholesterol 220 mg/dL (140-199); Estimated Glomerular Filt Rate > 60.0 mL/min (>60); Globulin 2.5 g/dL (1.7-4.1); Glucose 102 mg/dL (80-110); HDL Cholesterol 45 mg/dL (40-60); HEMOLYSIS < 15 (0-50); LDL Cholesterol Calculated 139 mg/dL (<100); Potassium 4.5 mmol/L (3.4-5.1); Sodium 138 mmol/L (137-145); Total Protein 6.8 g/dL (6.3-8.2); Triglycerides 182 mg/dL (35-150)
== END ==
PROVIDERS: PCP Family Medicine; Referring Provider Family Medicine; Visit Provider Family Medicine
DX: E78.00 Pure hypercholesterolemia, unspecified (principal); Z86.39 Personal history of other endocrine, nutritional and metabolic disease; G62.9 Polyneuropathy, unspecified
CPT/HCPCS: 36415; 80053; 80061; 83036; 85025

== ENCOUNTER → 2021-06-14 07:12 | Outpatient (CLI) | payer MEDICARE, OTHER, SELFPAY ==
[2021-06-14 08:38] LABS: Add Manual Diff / Slide Review NO; Basophils Absolute Auto 0 /uL (0-100); Basophils Percent Auto 0.5 % (0-2); Eosinophils Absolute Auto 200 /uL (0-450); Eosinophils Percent Auto 2.4 % (2-4); Hematocrit 44.2 % (41-53); Hemoglobin 14.2 g/dL (13.5-17.5); Lymphocytes Absolute Auto 1400 /uL (1100-4500); Lymphocytes Percent Auto 21.5 % (25-40); Mean Corpuscular HGB Conc 32.2 % (30-36); Mean Corpuscular Hemoglobin 27.5 PG (26-34); Mean Corpuscular Volume 85.5 fL (80-100); Monocytes Absolute Auto 500 /uL (0-900); Monocytes Percent Auto 8.5 % (3-14); Neutrophils Absolute Auto 4200 /uL (1500-7000); Neutrophils Percent Auto 67.1 % (50-75); Platelet Count 210 X10^3/uL (150-400); Red Blood Cell Count 5.17 X10^6/uL (4.5-5.9); Red Cell Distribution Width 14.2 % (11.6-14.8); White Blood Cell Count 6.3 X10^3/uL (4.5-11.0)
[2021-06-14 09:38] LABS: Carbon Dioxide 29 mmol/L (22-32); Chloride 106 mmol/L (98-107); Cholesterol 159 mg/dL (140-199); HDL Cholesterol 37 mg/dL (40-60); HEMOLYSIS < 15 (0-50); LDL Cholesterol Calculated 101 mg/dL (<100); Potassium 4.1 mmol/L (3.4-5.1); Sodium 142 mmol/L (137-145); Triglycerides 103 mg/dL (35-150)
== END ==
PROVIDERS: PCP Family Medicine; Referring Provider Orthopaedic Surgery; Visit Provider Orthopaedic Surgery
DX: G62.9 Polyneuropathy, unspecified; K21.9 Gastro-esophageal reflux disease without esophagitis; Z01.812 Encounter for preprocedural laboratory examination; Z01.818 Encounter for other preprocedural examination
CPT/HCPCS: 36415; 80051; 80061; 85025

== ENCOUNTER → 2021-11-15 06:29 | Outpatient (CLI) | payer MEDICARE, OTHER, SELFPAY ==
--- NOTE | 2021-11-15 06:31 | DI.MRI.S_ITS ---
PROCEDURE: MR HEAD/BRAIN WO CON INDICATIONS: Transient global amnesia TECHNIQUE: Non-contrast axial T1 spin echo, axial T2 fast spin echo, sagittal and axial FLAIR, coronal T2 fast spin echo, axial gradient echo, axial diffusion and ADC through the brain. COMPARISON: None. FINDINGS: Image quality: Excellent. CSF spaces: Ventricles appear symmetric in size and shape. Basal cisterns are patent. No extra-axial fluid collections. Brain: No intracranial bleeds or mass effects. There is cerebral volume loss for age. There are periventricular and deep white matter chronic small vessel ischemic changes. Brainstem appears normal. Diffusion-weighted images show no acute ischemic insults. No chronic ischemic insults. Normal intravascular flow voids are present. Skull and face: Calvarial bone marrow is normal in signal. Orbits are normal. Sinuses: Areas of focal moderate mucosal thickening can be seen involving the left ethmoid air cells. Mild mucosal thickening is seen elsewhere within the paranasal sinuses. No abnormal fluid is seen within the mastoid air cells. IMPRESSION: Unremarkable brain MRI for age, without an imaging explanation found for the patient's presenting history. Incidental note is made of: Focal ethmoid air cell disease Dictated by: Kulwinder Tenorio M.D. on 11/15/2021 at 8:08 Approved by: Kulwinder Tenorio M.D. on 11/15/2021 at 8:10
== END ==
PROVIDERS: PCP Family Medicine; Referring Provider Psychiatry & Neurology Neurology; Visit Provider Psychiatry & Neurology Neurology
DX: G45.4 Transient global amnesia (principal); R68.89 Other general symptoms and signs
CPT/HCPCS: 70551

== ENCOUNTER → 2021-12-09 14:49 | Outpatient (CLI) | payer MEDICARE, OTHER, SELFPAY ==
--- NOTE | 2021-12-09 14:51 | DI.US.S_ITS ---
PROCEDURE: US CAROTID DOPPLER BI INDICATIONS: Transient global amnesia TECHNIQUE: Color and pulse Doppler interrogation was performed of both carotid systems, with image documentation and velocity measurements. COMPARISON: [facility], MR, MR HEAD/BRAIN WO CON, 11/15/2021, 7:08. FINDINGS: Stenosis calculations are based on SRU (Society of Radiologists in Ultrasound) criteria. The flow velocities and the arterial waveforms are normal within both carotid arterial systems. Minimal atherosclerotic plaque is seen on both sides. The estimated degree of internal carotid artery stenosis is less than 50%. Antegrade flow is confirmed within both vertebral arteries. The vessels are noted to be tortuous. IMPRESSION: No hemodynamically significant stenosis is seen. Dictated by: Kulwinder Tenorio M.D. on 12/09/2021 at 14:46 Approved by: Kulwinder Tenorio M.D. on 12/09/2021 at 14:47
== END ==
PROVIDERS: PCP Family Medicine; Referring Provider Psychiatry & Neurology Neurology; Visit Provider Psychiatry & Neurology Neurology
DX: G45.4 Transient global amnesia (principal); R68.89 Other general symptoms and signs
CPT/HCPCS: 93880

== ENCOUNTER → 2022-01-07 07:01 | Outpatient (CLI) | payer MEDICARE, OTHER, SELFPAY ==
[2022-01-07 08:26] LABS: Add Manual Diff / Slide Review NO; Basophils Absolute Auto 0 /uL (0-100); Basophils Percent Auto 0.3 % (0-2); Eosinophils Absolute Auto 100 /uL (0-450); Eosinophils Percent Auto 1.1 % (2-4); Hemoglobin 12.9 g/dL (13.5-17.5); Lymphocytes Absolute Auto 1300 /uL (1100-4500); Mean Corpuscular HGB Conc 33.9 % (30-36); Mean Corpuscular Hemoglobin 27.6 PG (26-34); Mean Corpuscular Volume 81.5 fL (80-100); Monocytes Absolute Auto 600 /uL (0-900); Monocytes Percent Auto 7.2 % (3-14); Neutrophils Absolute Auto 6400 /uL (1500-7000); Neutrophils Percent Auto 76.4 % (50-75); Platelet Count 265 X10^3/uL (150-400); Red Blood Cell Count 4.66 X10^6/uL (4.5-5.9); Red Cell Distribution Width 13.6 % (11.6-14.8); White Blood Cell Count 8.4 X10^3/uL (4.5-11.0)
[2022-01-07 08:36] LABS: Blood Urea Nitrogen 17 mg/dL (9-20); Carbon Dioxide 25 mmol/L (22-32); Chloride 108 mmol/L (98-107); Potassium 4.2 mmol/L (3.4-5.1); Sodium 140 mmol/L (137-145)
[2022-01-07 08:37] LABS: Alanine Aminotransferase 22 IU/L (<50); Albumin 3.8 g/dL (3.5-5.0); Albumin Globulin Ratio 1.6 (1.0-2.8); Alkaline Phosphatase 82 U/L (38-126); Aspartate Aminotransferase 24 IU/L (17-59); BUN Creatinine Ratio 21.3 (6-22); Bilirubin Total 0.6 mg/dL (0.2-1.3); Calcium 8.5 mg/dL (8.4-10.2); Cholesterol 149 mg/dL (140-199); Estimated Glomerular Filt Rate > 60 mL/min (>60); Globulin 2.4 g/dL (1.7-4.1); Glucose 100 mg/dL (80-110); HDL Cholesterol 37 mg/dL (40-60); HEMOLYSIS < 15 (0-50); LDL Cholesterol Calculated 85 mg/dL (<100); Total Protein 6.2 g/dL (6.3-8.2); Triglycerides 135 mg/dL (35-150)
== END ==
PROVIDERS: PCP Family Medicine; Referring Provider Family Medicine; Visit Provider Family Medicine
DX: E78.00 Pure hypercholesterolemia, unspecified (principal); Z86.39 Personal history of other endocrine, nutritional and metabolic disease
CPT/HCPCS: 36415; 80053; 80061; 85025

== ENCOUNTER → 2022-01-17 09:08 | Outpatient (CLI) | payer MEDICARE, OTHER, SELFPAY ==
[2022-01-17 10:42] LABS: Erythrocyte Sedimentation Rate 24 MM/HR (0-15)
[2022-01-17 11:03] LABS: C-Reactive Protein Quant 4.3 mg/dL (<1.0)
[2022-01-17 11:47] LABS: Rheumatoid Factor < 8.6 IU/mL (<12.0)
[2022-01-20 21:17] LABS: CCP Antibodies IgG/IgA 1 units (0-19)
== END ==
PROVIDERS: PCP Family Medicine; Referring Provider Family Medicine; Visit Provider Family Medicine
DX: M79.641 Pain in right hand (principal); M79.642 Pain in left hand; M79.89 Other specified soft tissue disorders
CPT/HCPCS: 36415; 85651; 86140; 86200; 86430

== ENCOUNTER 2022-04-12 11:57 | Emergency (ER) | payer MEDICARE, OTHER, SELFPAY ==
[2022-04-12 12:13] VITALS: BP 187/88; PULSE 80; RESP 14; TEMP 36.9; O2SAT 100
--- NOTE | 2022-04-12 12:14 | ED.UPPEXIN ---
HPI - Extremity Injury (Upper) General Chief Complaint: Wound/Laceration Stated Complaint: trimmed the pad of finger off Time Seen by Provider: 04/12/22 12:14 History of Present Illness HPI narrative: 77-year-old male former smoker with noncontributory chronic medical problems presents with a chief complaint of an accidental injury to the tip of his left 5th finger last night. He was preparing a salad at dinner and the knife slipped and cut his finger. His tetanus will need to be updated today. He does not take blood thinners. He has some pain but is otherwise well and denies other injury. He denies any chest pain or shortness of breath. He is not dizzy nor weak or lightheaded. He denies any fever or chills. Related Data Home Medications Medication Instructions Recorded Confirmed Coenzyme Q10 (#CO Q-10) 200 mg PO QDAY ##0 07/01/11 03/25/22 Cu/Se/Vit A/Vit C/Vit E/Zinc 1 tab PO QDAY ##0 07/01/11 03/25/22 (#OCUVITE) Fish Oil (#OMEGA-3 FISH OIL) 1,200 mg PO QDAY ##0 08/07/11 03/25/22 alpha lipoic acid 600 mg capsule 600 mg PO DAILY 10/02/20 03/25/22 cholecalciferol (vitamin D3) 125 125 mcg PO DAILY 10/02/20 03/25/22 mcg (5,000 unit) capsule ferrous sulfate 325 mg (65 mg 325 mg PO DAILY 10/02/20 03/25/22 iron) tablet mecobalamin (vitamin B12) 1,000 1,000 mcg PO DAILY 10/02/20 03/25/22 mcg chewable tablet turmeric root extract 500 mg 1,000 mg PO DAILY 10/02/20 03/25/22 capsule vitamin B complex (Super B-50 1 cap PO DAILY 10/02/20 03/25/22 Complex capsule) Previous Rx's Medication Instructions Recorded esomeprazole magnesium 20 mg 20 mg PO DAILY #30 caps 02/09/18 capsule,delayed release (Nexium) albuterol sulfate 90 mcg/actuation 2 puff inhalation Q4-6H PRN 10/26/19 aerosol inhaler (Ventolin HFA) shortness of breath or wheezing #18 grams pravastatin 80 mg tablet 80 mg PO BEDTIME #90 tabs 04/16/20 prednisone 20 mg tablet 20 mg PO DAILY #30 tabs 01/31/22 Allergies Allergy/AdvReac Type Severity Reaction Status Date / Time bee venom protein (honey bee) Allergy Severe TROUBLE Verified 04/12/22 12:17 [BEE VENOM PROTEIN (HONEY BREATHING BEE)] Review of Systems Review of Systems Narrative: GENERAL: Denies chills, fatigue, malaise, fever, sweats. HEENT: Denies sinus pain, ear pain, sore throat, difficulty swallowing, dizziness. RESPIRATORY: Denies dyspnea, cough, wheezing, hemoptysis, sputum. CARDIOVASCULAR: Denies chest pain, palpitations, orthopnea, edema, GASTROINTESTINAL: Denies nausea, vomiting, abdominal pain, diarrhea, constipation, melena. : Denies dysuria, frequency, incontinence, hematuria, urinary retention. MUSCULOSKELETAL: denies weakness, joint pain, or bony pain SKIN: See HPI NEUROLOGIC: Denies weakness, headache, numbness, change in speech, confusion, seizures, incoordination. PSYCHIATRIC: No concerning psychosocial issues. 12 point review of systems is negative except for those stated above Patient History Medical History Absence attack Acute neck pain Allergic rhinitis (Unknown) Back stiffness Bilateral hand pain Bilateral hand swelling BPH (benign prostatic hyperplasia) (Unknown) Cervical radiculopathy Cervical somatic dysfunction Chickenpox (1953) Chronic back pain (~1970) Chronic low back pain Colon polyps (1997) COPD (chronic obstructive pulmonary disease) (2012) Ear canal dryness Excessive cerumen in both ear canals Gastric ulcer GERD (gastroesophageal reflux disease) (1999) GERD (gastroesophageal reflux disease) Hearing loss (1967) Hearing loss History of iron deficiency Hyperlipemia (Unknown) Hyperlipidemia Iliotibial band syndrome, left leg Lumbar region somatic dysfunction Measles (5) Mumps (6) Osteoarthritis (Unknown) Pelvic somatic dysfunction Pes planus of both feet Polymyalgia rheumatica (05/25/14) Polymyalgia rheumatica (2014) Postoperative pain of right knee Rheumatoid arthritis (2007) Right wrist pain Sacral region somatic dysfunction Segmental and somatic dysfunction of abdomen and other regions Sleep apnea (Unknown) Somatic dysfunction of lower extremity Stiff neck Strain of left piriformis muscle Thoracic region somatic dysfunction Tinnitus Tinnitus of both ears (1966) Vitreous detachment Surgical History History of carpal tunnel release (2016) History of surgery on arm History of vasectomy Hx of transurethral resection of prostate (2010) Status post right partial knee replacement Family History Mother Heart disease Father No problems noted. Social History marital status: household members: spouse lives independently: Yes education level: college Smoking Status: Former smoker alcohol intake: current substance use type: does not use Smoking Status: Former smoker alcohol intake frequency: a few times a week Substance Use Type: does not use Exam Narrative Exam Narrative: GEN: AOx3 and in mild distress EYES: Pupils are equal, round, and reactive to light and accommodation. Extraoccular muscles are intact bilaterally. There is no subconjunctival hemorrhage or exudate. CHEST: Lungs are clear to auscultation bilaterally and free of wheezes, rales, or rhonchi. Heart rate is regular rhythm, there are no murmurs, clicks, rubs, or gallops. There is no chest wall tenderness. ABD: Abdomen is soft and nontender. There is no guarding or rebound. Bowel sounds are normal in all 4 quadrants. There is no mass or organomegaly. EXT: 0.5 cm2 avulsion laceration to the tip of left 5th finger with fresh clot. No nail bed, nail or nail fold involvement. No bone exposed. Full painless ROM of all extremities with no loss of sensation or strength. SKIN: Warm, pink, and dry. No erythema or rash Initial Vital Signs Initial Vital Signs: Vital Signs Temperature 98.5 F 04/12/22 12:13 Pulse Rate 80 04/12/22 12:13 Respiratory Rate 14 04/12/22 12:13 Blood Pressure 187/88 H 04/12/22 12:13 Pulse Oximetry 100 04/12/22 12:13 Oxygen Delivery Method 04/12/22 12:13 Course Orders Ordered: Discontinued Medications Diphtheria/Tetanus/Acell Pertussis (Tet,Diph,Pertuss(Acell),Vac/Pf 0.5 Ml Syringe) 0.5 ml IM .ONCE ONE Stop: 04/12/22 12:15 Last Admin: 04/12/22 12:27 Dose: 0.5 ml Documented By: GUADALUPE MDM - Extremity Injury (Upper) MDM Narrative Medical decision making narrative: 77-year-old male with avulsion to tip of left 5th finger, tetanus updated, minimal if any active bleeding. Nothing to repair, hemostatic gauze placed, return precautions discussed Discharge Plan Departure Patient Disposition: Home Clinical Impression: Laceration of finger of left hand Qualifiers: Encounter type: initial encounter Finger: little finger Damage to nail status: without damage Foreign body presence: without foreign body Qualified Code(s): S61.217A - Laceration without foreign body of left little finger without damage to nail, initial encounter Instructions: DI for Avulsion Laceration (Not Requiring Sutures) Activity Restrictions/Additional Instructions: *You have been diagnosed with [left 5th finger avulsion laceration. As we discussed this will not require sutures, just the special gauze that we applied and dressing change. These tend to heal on their own without the need for other intervention] *What to do: *Please continue to take your regular medications as directed. [ ] New medication prescriptions sent to your pharmacy: [ ] [ ] New medication written as a paper prescription [ x] No new medications given *Please follow up with your primary care provider in 2-3 days, call for an appointment. Let them know you were seen in the Emergency Department and that we ask that you be seen in follow up. We will electronically transmit a record of today's note if your PCP is in our system *If you do not have a primary care provider please contact the [facility] Resource line at [phone]. They will ask some questions about your medical history and help get you set up with a doctor in the community. *Return to Emergency Department if you should have any new, worsening or concerning symptoms, such as [fever greater than 101 F, shaking chills, worsening pain, persistent vomiting or other bothersome symptoms] Prescriptions: No Action esomeprazole magnesium [Nexium] 20 mg capsule,delayed release(DR/EC) 20 mg PO DAILY Qty: 30 0RF Coenzyme Q10 (#CO Q-10) 200 mg PO QDAY Qty: 0 Cu/Se/Vit A/Vit C/Vit E/Zinc (#OCUVITE) 1 tab PO QDAY Qty: 0 Fish Oil (#OMEGA-3 FISH OIL) 1,200 mg PO QDAY Qty: 0 pravastatin 80 mg tablet 80 mg PO BEDTIME Qty: 90 3RF prednisone 20 mg tablet 20 mg PO DAILY Qty: 30 1RF albuterol sulfate [Ventolin HFA] 90 mcg/actuation HFA aerosol inhaler 2 puff INHALATION Q4-6H PRN (Reason: shortness of breath or wheezing) Qty: 18 11RF ferrous sulfate 325 mg (65 mg iron) tablet 325 mg PO DAILY alpha lipoic acid 600 mg capsule 600 mg PO DAILY turmeric root extract 500 mg capsule 1,000 mg PO DAILY vitamin B complex [Super B-50 Complex] Capsule 1 cap PO DAILY mecobalamin (vitamin B12) 1,000 mcg tablet,chewable 1,000 mcg PO DAILY cholecalciferol (vitamin D3) 125 mcg (5,000 unit) capsule 125 mcg PO DAILY Referrals: Rikki Bhakta DO [Primary Care Provider] - Visit Report Forms: Patient Portal/API
[2022-04-12] MEDS: TET,DIPH,PERTUSS(ACELL),VAC/PF 0.5 ML SYRINGE IM (12:27)
== END 2022-04-12 12:35 | disposition home or self-care (01) ==
PROVIDERS: Emergency Provider Emergency Medicine; PCP Family Medicine
DX: S61.217A Laceration without foreign body of left little finger without damage to nail, initial encounter (principal); W26.0XXA Contact with knife, initial encounter; Z23 Encounter for immunization
CPT/HCPCS: 90471; 99283; 90715

== ENCOUNTER → 2022-10-30 07:09 | Outpatient (CLI) | payer MEDICARE, OTHER, SELFPAY ==
[2022-10-30 08:35] LABS: Add Manual Diff / Slide Review NO; Basophils Absolute Auto 0 /uL (0-100); Basophils Percent Auto 0.4 % (0-2); Eosinophils Absolute Auto 100 /uL (0-450); Eosinophils Percent Auto 1.9 % (2-4); Hematocrit 43.7 % (41-53); Hemoglobin 14.2 g/dL (13.5-17.5); Lymphocytes Absolute Auto 1300 /uL (1100-4500); Lymphocytes Percent Auto 22.6 % (25-40); Mean Corpuscular HGB Conc 32.5 % (30-36); Mean Corpuscular Hemoglobin 26.6 PG (26-34); Mean Corpuscular Volume 81.9 fL (80-100); Monocytes Absolute Auto 700 /uL (0-900); Monocytes Percent Auto 11.6 % (3-14); Neutrophils Absolute Auto 3700 /uL (1500-7000); Neutrophils Percent Auto 63.5 % (50-75); Platelet Count 208 X10^3/uL (150-400); Red Blood Cell Count 5.34 X10^6/uL (4.5-5.9); Red Cell Distribution Width 15.3 % (11.6-14.8); White Blood Cell Count 5.8 X10^3/uL (4.5-11.0)
[2022-10-30 09:18] LABS: Alanine Aminotransferase 24 IU/L (<50); Albumin Globulin Ratio 1.4 (1.0-2.8); Alkaline Phosphatase 90 U/L (38-126); Aspartate Aminotransferase 25 IU/L (17-59); BUN Creatinine Ratio 20.3 (6-22); Bilirubin Total 0.7 mg/dL (0.2-1.3); Blood Urea Nitrogen 15 mg/dL (9-20); Calcium 8.5 mg/dL (8.4-10.2); Carbon Dioxide 26 mmol/L (22-32); Chloride 105 mmol/L (98-107); Cholesterol 199 mg/dL (140-199); Estimated Glomerular Filt Rate > 60 mL/min (>60); Globulin 2.8 g/dL (1.7-4.1); Glucose 95 mg/dL (80-110); HDL Cholesterol 34 mg/dL (40-60); HEMOLYSIS < 15 (0-50); LDL Cholesterol Calculated 139 mg/dL (<100); Potassium 3.9 mmol/L (3.4-5.1); Sodium 138 mmol/L (137-145); Total Protein 6.8 g/dL (6.3-8.2); Triglycerides 132 mg/dL (35-150)
[2022-10-30 09:45] LABS: Prostate Specific Antigen Scrn 0.882 ng/mL (0.1-4.0)
[2022-10-30 09:48] LABS: TSH w/ Reflex to FT4 2.05 uIU/mL (0.47-4.68)
[2022-10-30 10:04] LABS: Vitamin B12 938 pg/mL (239-931)
== END ==
PROVIDERS: PCP Family Medicine; Referring Provider Family Medicine; Visit Provider Family Medicine
DX: E78.5 Hyperlipidemia, unspecified (principal); Z12.5 Encounter for screening for malignant neoplasm of prostate; J44.9 Chronic obstructive pulmonary disease, unspecified; K21.9 Gastro-esophageal reflux disease without esophagitis; M35.3 Polymyalgia rheumatica; R42 Dizziness and giddiness; Z86.39 Personal history of other endocrine, nutritional and metabolic disease
CPT/HCPCS: 36415; 80053; 80061; 82607; 84443; 85025; G0103

== ENCOUNTER 2023-06-08 08:48 | Emergency (ER) | payer MEDICARE, OTHER, SELFPAY ==
[2023-06-08] VITALS (20 sets, daily range): BP systolic 116–156; BP diastolic 69–82; PULSE 64–74; RESP 12–18; TEMP 37.2; O2SAT 96–99; BMI 29.5
--- NOTE | 2023-06-08 09:00 | DI.RAD.S_ITS ---
PROCEDURE: XR CHEST 1V INDICATIONS: chest pain TECHNIQUE: One view of the chest was acquired. COMPARISON: [facility], CR, XR CHEST 2V, 08/18/2019, 7:33. FINDINGS: Surgical changes and devices: None. Lungs and pleura: Lungs are clear. Emphysematous change. No pleural effusions or pneumothorax. Mediastinum: Mediastinal contours appear normal. Heart size is normal. Bones and chest wall: No suspicious bony lesions. Overlying soft tissues appear unremarkable. IMPRESSION: COPD. No evidence acute pulmonary process. Dictated by: Sebastian Rosario M.D. on 06/08/2023 at 9:28 Approved by: Sebastian Rosario M.D. on 06/08/2023 at 9:29
[2023-06-08 09:18] LABS: Add Manual Diff / Slide Review NO; Basophils Absolute Auto 0 /uL (0-100); Basophils Percent Auto 0.6 % (0-2); Eosinophils Absolute Auto 100 /uL (0-450); Eosinophils Percent Auto 1.2 % (2-4); Hematocrit 42.4 % (41-53); Hemoglobin 14.1 g/dL (13.5-17.5); Lymphocytes Absolute Auto 1100 /uL (1100-4500); Lymphocytes Percent Auto 16.1 % (25-40); Mean Corpuscular HGB Conc 33.2 % (30-36); Mean Corpuscular Hemoglobin 28.3 PG (26-34); Mean Corpuscular Volume 85.1 fL (80-100); Monocytes Absolute Auto 700 /uL (0-900); Monocytes Percent Auto 10.4 % (3-14); Neutrophils Absolute Auto 4900 /uL (1500-7000); Neutrophils Percent Auto 71.7 % (50-75); Platelet Count 228 X10^3/uL (150-400); Red Blood Cell Count 4.99 X10^6/uL (4.5-5.9); White Blood Cell Count 6.8 X10^3/uL (4.5-11.0)
[2023-06-08 09:25] LABS: INR 1.1 (0.9-1.3); Prothrombin Time 12.2 SECONDS (10.1-12.7)
[2023-06-08 09:28] LABS: PTT Partial Thromboplastin Tim 28 SECONDS (26-36)
[2023-06-08 09:32] LABS: Alanine Aminotransferase 23 IU/L (<50); Albumin Globulin Ratio 1.4 (1.0-2.8); Alkaline Phosphatase 73 U/L (38-126); Aspartate Aminotransferase 25 IU/L (17-59); BUN Creatinine Ratio 20.5 (6-22); Bilirubin Total 0.6 mg/dL (0.2-1.3); Blood Urea Nitrogen 16 mg/dL (9-20); Calcium 9.4 mg/dL (8.4-10.2); Carbon Dioxide 28 mmol/L (22-32); Chloride 105 mmol/L (98-107); Creatine Kinase 93 U/L (55-170); Estimated Glomerular Filt Rate > 60 mL/min (>60); Globulin 2.8 g/dL (1.7-4.1); Glucose 97 mg/dL (80-110); HEMOLYSIS < 15 (0-50); Lipase 77 U/L (23-300); Magnesium 2.1 mg/dL (1.6-2.3); Potassium 4.3 mmol/L (3.4-5.1); Sodium 138 mmol/L (137-145); Total Protein 6.8 g/dL (6.3-8.2)
[2023-06-08 09:44] LABS: Troponin I < 0.012 ng/mL (0.01-0.034)
--- NOTE | 2023-06-08 10:15 | ED.NAVMDI ---
HPI - Nausea/Vomiting/Diarrhea General Chief complaint: Nausea/Vomiting/Diarrhea Stated complaint: acid reflux T-3, feels fuzzy in head Time Seen by Provider: 06/08/23 09:18 Source: patient Mode of arrival: Ambulatory Limitations: no limitations History of Present Illness HPI Narrative: 78-year-old male history of GERD, dyslipidemia who presents with 3 days of what he describes as reflux not improving. He describes it as lower suprapubic abdominal pain. He states it is not epigastric it is not in his chest. He did have little bit less chest discomfort that sometimes happens that sometimes radiates a little bit farther back but he states the main reason he came is for his abdominal pain. Patient denies fevers or chills he is had some nausea but no vomiting, he denies any diarrhea or constipation no bright red blood, no melena. He did get up twice nightly to urinate no dysuria. No back or flank pain. He does have some chronic low back pain but nothing new. He is not had similar symptoms in the past. He has been taking Tums to see if that is helpful it was not. He states it is only daily medications are Nexium and a statin. He is had a TURP in the past, is allergic to bees. Quit smoking 1998, 2 beers weekly, no recreational drugs or illicit. He came today because his pain was not improving and he felt a little lightheaded earlier. No syncope. Related Data Home Medications Medication Instructions Recorded Confirmed Coenzyme Q10 (#CO Q-10) 200 mg PO QDAY ##0 07/01/11 03/14/23 Cu/Se/Vit A/Vit C/Vit E/Zinc 1 tab PO QDAY ##0 07/01/11 03/14/23 (#OCUVITE) Fish Oil (#OMEGA-3 FISH OIL) 1,200 mg PO QDAY ##0 08/07/11 03/14/23 alpha lipoic acid 600 mg capsule 600 mg PO DAILY 10/02/20 03/14/23 cholecalciferol (vitamin D3) 125 125 mcg PO DAILY 10/02/20 03/14/23 mcg (5,000 unit) capsule ferrous sulfate 325 mg (65 mg 325 mg PO DAILY 10/02/20 03/14/23 iron) tablet mecobalamin (vitamin B12) 1,000 1,000 mcg PO DAILY 10/02/20 03/14/23 mcg chewable tablet turmeric root extract 500 mg 1,000 mg PO DAILY 10/02/20 03/14/23 capsule vitamin B complex (Super B-50 1 cap PO DAILY 10/02/20 03/14/23 Complex capsule) prednisone 5 mg tablet 5 mg PO DAILY 07/28/22 03/14/23 latanoprost 0.005 % eye drops 1 drp EYE-BOTH DAILY 11/14/22 03/14/23 Previous Rx's Medication Instructions Recorded esomeprazole magnesium 20 mg 20 mg PO DAILY #30 caps 02/09/18 capsule,delayed release (Nexium) albuterol sulfate 90 mcg/actuation 2 puff inhalation Q4-6H PRN 10/26/19 aerosol inhaler (Ventolin HFA) shortness of breath or wheezing #18 grams epinephrine 0.125 mg/actuation 1 puff inhalation Q6H PRN 04/15/22 aerosol inhaler (Primatene Mist) bronchodilation #11.7 grams pravastatin 80 mg tablet 80 mg PO BEDTIME #90 tabs 06/05/23 Allergies Allergy/AdvReac Type Severity Reaction Status Date / Time bee venom protein (honey bee) Allergy Severe TROUBLE Verified 03/14/23 10:29 [BEE VENOM PROTEIN (HONEY BREATHING BEE)] Review of Systems Review of Systems ROS Unobtainable: All systems reviewed & are unremarkable except as noted in HPI and below Patient History Medical History Episodic lightheadedness Wheezing Strain of left piriformis muscle Iliotibial band syndrome, left leg Cervical radiculopathy Stiff neck Bilateral hand swelling Bilateral hand pain Excessive cerumen in both ear canals Postoperative pain of right knee Absence attack Back stiffness Thoracic region somatic dysfunction Cervical somatic dysfunction Acute neck pain Pes planus of both feet Somatic dysfunction of lower extremity Segmental and somatic dysfunction of abdomen and other regions Sacral region somatic dysfunction Pelvic somatic dysfunction Lumbar region somatic dysfunction History of iron deficiency Rheumatoid arthritis (2007) Chronic back pain (~1970) Sleep apnea (Unknown) Right wrist pain Ear canal dryness COPD (chronic obstructive pulmonary disease) (2012) Hearing loss Tinnitus Chronic low back pain Hyperlipidemia GERD (gastroesophageal reflux disease) Allergic rhinitis (Unknown) BPH (benign prostatic hyperplasia) (Unknown) Hyperlipemia (Unknown) Polymyalgia rheumatica (2014) Osteoarthritis (Unknown) Chickenpox (1954) Measles (195) Mumps (1955) Tinnitus of both ears (1966) Hearing loss (1966) Colon polyps (1997) GERD (gastroesophageal reflux disease) (1999) Polymyalgia rheumatica (05/25/14) Vitreous detachment Gastric ulcer Surgical History Status post right partial knee replacement History of surgery on arm History of carpal tunnel release (2015) Hx of transurethral resection of prostate (2010) History of vasectomy Family History Mother Heart disease Father No problems noted. Social History marital status: household members: spouse lives independently: Yes education level: college Smoking Status: Former smoker alcohol intake: current substance use type: does not use Smoking Status: Former smoker alcohol intake frequency: a few times a week Substance Use Type: does not use Exam Narrative Exam Narrative: GENERAL: Alert and oriented x three, elderly male in mild distress. HEENT: Head normocephalic, atraumatic, EOMI, pupils reactive, face symmetric, moist mucous membranes NECK: Supple, full range of motion CARDIOVASCULAR: Regular rate and rhythm without murmurs, rubs or gallops. RESPIRATORY: Breath sounds equal bilaterally, no wheezes rales or rhonchi. ABDOMEN: Soft, nontender. Normoactive bowel sounds all 4 quadrants. No guarding or rebound, rigidity, no mass : No CVA tenderness EXTREMITIES: Normal range of motion, no clubbing or edema. Neurovascularly intact NEUROLOGICAL: Cranial nerves II through XII grossly intact. Moving all extremities SKIN: Warm, dry, no petechiae, no rashes or lesions. Initial Vital Signs Initial Vital Signs: Vital Signs Temperature 98.9 F 06/08/23 08:50 Pulse Rate 74 06/08/23 08:50 Respiratory Rate 18 06/08/23 08:50 Blood Pressure 138/78 06/08/23 08:50 Pulse Oximetry 98 06/08/23 08:50 Oxygen Delivery Method Room Air 06/08/23 08:50 Course Orders Ordered: ED Orders 06/08/23 11:10 Trop I [Troponin I] Stat 06/08/23 13:20 CT abdomen pelvis w con Stat Discontinued Medications Acetaminophen (Acetaminophen 325 Mg Tablet) 650 mg PO NOW ONE Stop: 06/08/23 10:14 Last Admin: 06/08/23 10:16 Dose: 650 mg Documented By: RB Aspirin (Aspirin 81 Mg Chew Tab) 324 mg PO NOW ONE Stop: 06/08/23 09:00 Last Admin: 06/08/23 10:04 Dose: Not Given Documented By: ANSON Vital Signs Vital signs: Vital Signs - 8 hr 06/08/23 11:30 06/08/23 11:30 06/08/23 12:00 Pulse Rate 65 65 Respiratory Rate 12 Blood Pressure 152/81 H Pulse Oximetry 97 96 Oxygen Delivery Method 06/08/23 12:00 06/08/23 12:30 06/08/23 12:31 Pulse Rate 64 Respiratory Rate Blood Pressure 116/74 134/72 Pulse Oximetry 97 Oxygen Delivery Method 06/08/23 12:31 06/08/23 13:00 06/08/23 13:00 Pulse Rate 67 65 Respiratory Rate 13 12 Blood Pressure 131/73 Pulse Oximetry 97 97 Oxygen Delivery Method 06/08/23 13:25 06/08/23 13:25 06/08/23 13:35 Pulse Rate 72 69 Respiratory Rate 13 Blood Pressure 152/81 H Pulse Oximetry 98 98 Oxygen Delivery Method 06/08/23 13:38 06/08/23 13:38 06/08/23 14:00 Pulse Rate 66 71 Respiratory Rate 12 Blood Pressure 147/80 H Pulse Oximetry 99 97 Oxygen Delivery Method Room Air 06/08/23 14:01 06/08/23 14:01 06/08/23 14:30 Pulse Rate 71 71 Respiratory Rate Blood Pressure 149/82 H Pulse Oximetry 97 96 Oxygen Delivery Method 06/08/23 14:31 06/08/23 14:31 06/08/23 14:32 Pulse Rate 71 Respiratory Rate Blood Pressure 151/78 H 154/79 H Pulse Oximetry 98 Oxygen Delivery Method 06/08/23 14:32 Pulse Rate 71 Respiratory Rate Blood Pressure Pulse Oximetry 98 Oxygen Delivery Method Room Air MDM - Nausea/Vomiting/Diarrhea Lab Data 06/08/23 09:07 06/08/23 09:07 Labs: Lab Results 06/08/23 06/08/23 Range/Units 09:07 11:10 WBC 6.8 (4.5-11.0) X10^3/uL RBC 4.99 (4.5-5.9) X10^6/uL Hgb 14.1 (13.5-17.5) g/dL Hct 42.4 (41-53) % MCV 85.1 (80-100) fL MCH 28.3 (26-34) PG MCHC 33.2 (30-36) % RDW 14.0 (11.6-14.8) % Plt Count 228 (150-400) X10^3/uL Neut % (Auto) 71.7 (50-75) % Lymph % (Auto) 16.1 L (25-40) % [place] % (Auto) 10.4 (3-14) % Eos % (Auto) 1.2 L (2-4) % Baso % (Auto) 0.6 (0-2) % Neut # (Auto) 4900 (7476-7711) /uL Lymph # (Auto) 1100 (5123-7787) /uL [place] # (Auto) 700 (0-900) /uL Eos # (Auto) 100 (0-450) /uL Baso # (Auto) 0 (0-100) /uL PT 12.2 (10.1-12.7) SECONDS INR 1.1 (0.9-1.3) APTT 28 (26-36) SECONDS Sodium 138 (137-145) mmol/L Potassium 4.3 (3.4-5.1) mmol/L Chloride 105 (98-107) mmol/L Carbon Dioxide 28 (22-32) mmol/L BUN 16 (9-20) mg/dL Creatinine 0.78 (0.66-1.25) mg/dL Estimated GFR > 60 (>60) mL/min BUN/Creatinine Ratio 20.5 (6-22) Glucose 97 (80-110) mg/dL Calcium 9.4 (8.4-10.2) mg/dL Magnesium 2.1 (1.6-2.3) mg/dL Total Bilirubin 0.6 (0.2-1.3) mg/dL AST 25 (17-59) IU/L ALT 23 (<50) IU/L Alkaline Phosphatase 73 (38-126) U/L Total Creatine Kinase 93 (55-170) U/L Troponin I < 0.012 < 0.012 (0.01-0.034) ng/mL Total Protein 6.8 (6.3-8.2) g/dL Albumin 4.0 (3.5-5.0) g/dL Globulin 2.8 (1.7-4.1) g/dL Albumin/Globulin Ratio 1.4 (1.0-2.8) Lipase 77 (23-300) U/L Urine Dip Bedside Urine Glucose Negative Bedside Urine Bilirubin - Negative Bedside Urine Ketone +/- 5 Urine Specific [place] 1.020 Bedside Urine Occult Blood - Negative Bedside Urine pH 6.0 Bedside Urine Protein - Negative Bedside Urine Urobilinogen - Negative Bedside Urine Nitrite - Negative Bedside Urine Leukocytes - Negative Esterase Imaging Data Chest x-ray: Radiologist's Impression: Close Chest X-Ray (Signed) Sebastian Rosario - 06/08/23 Carotid Doppler Study (Signed) Kulwinder Tenorio - 12/09/21 Brain MRI (Signed) Kulwinder Tenorio - 11/15/21 Telemetry Strips 12/03/20 Hip X-Ray (Signed) Ric Lewis - 04/05/20 Chest X-Ray (Signed) Zoraida Plascencia - 08/18/19 Launch?[place] [address] XRay Report Signed Patient: Gavin Obrien MR#: [id number] : 1945 Acct:[id number] Age/Sex: 78 / M Date of Service: 06/08/23 Loc: ED Accession Number: [id number] Procedure: XR chest 1V Ordering Provider: Allison Montes D.O. PROCEDURE: XR CHEST 1V INDICATIONS: chest pain TECHNIQUE: One view of the chest was acquired. COMPARISON: Merged With [facility], , XR CHEST 2V, 08/18/2019, 7:33. FINDINGS: Surgical changes and devices: None. Lungs and pleura: Lungs are clear. Emphysematous change. No pleural effusions or pneumothorax. Mediastinum: Mediastinal contours appear normal. Heart size is normal. Bones and chest wall: No suspicious bony lesions. Overlying soft tissues appear unremarkable. IMPRESSION: COPD. No evidence acute pulmonary process. Dictated by: Sebastian Rosario M.D. on 06/08/2023 at 9:28 Approved by: Sebastian Rosario M.D. on 06/08/2023 at 9:29 CT scan - abdomen/pelvis: Radiologist's Impression: Gavin Obrien??78??M??1945 ? Allergy/Adv: bee venom protein (honey bee) (More??) Close Abdomen/Pelvis CT (Signed) Sebastian Rosario - 06/08/23 Chest X-Ray (Signed) Sebastian Rosario - 06/08/23 Carotid Doppler Study (Signed) Kulwinder Tenorio - 12/09/21 Brain MRI (Signed) Kulwinder Tenorio - 11/15/21 Telemetry Strips 12/03/20 Hip X-Ray (Signed) Ric Lewis - 04/05/20 Chest X-Ray (Signed) Zoraida Plascencia - 08/18/19 Launch?[place] [address] CT Scan Report Signed Patient: Gavin Obrien MR#: [id number] : 1945 Acct:[id number] Age/Sex: 78 / M Date of Service: 06/08/23 Loc: ED Accession Number: [id number] Procedure: CT abdomen pelvis w con Ordering Provider: Allison Montes D.O. PROCEDURE: CT ABDOMEN PELVIS W CON INDICATIONS: lower abd pain, midline x 3 days not improving TECHNIQUE: After the administration of intravenous contrast, axial sections acquired from the lung bases to the pubic symphysis. Coronal and sagittal reformats were performed. For radiation dose reduction, the following was used: automated exposure control, adjustment of mA and/or kV according to patient size. COMPARISON: None. FINDINGS: Image quality: Excellent. Lung bases: Unremarkable. Heart: No significant findings. ABDOMEN: Liver: Unremarkable. Gallbladder: Unremarkable without calcified stones. Biliary ducts: Unremarkable. Pancreas: Unremarkable. Spleen: Unremarkable. Adrenal Glands: Bilateral adrenal hypertrophy, left greater than right. No suspicious mass.. Kidneys and Ureters: Unremarkable. Stomach and Bowel: Small hiatal hernia. Mild diverticulosis. Otherwise unremarkable. Peritoneum: No abnormal intraperitoneal fluid. No free air. Ventral Wall: No hernias. Abdominal Nodes: No retroperitoneal or mesenteric adenopathy by size criteria. Vessels: Aorta and inferior vena cava are normal in size. PELVIS: Pelvic Organs: Unremarkable. Bladder: Unremarkable. Pelvic Nodes: No enlarged lymph nodes. Miscellaneous: No hernias are seen. Bones: Lumbar degenerative change. No lytic or blastic bony lesions. No compression fractures. IMPRESSION: 1. No acute abdominal process. 2. Mild diverticulosis without evidence of diverticulitis. 3. Small hiatal hernia. Dictated by: Sebastian Rosario M.D. on 06/08/2023 at 13:57 Approved by: Sebastian Rosario M.D. on 06/08/2023 at 14:00 ECG Data Attestation: I personally reviewed and interpreted this ECG as follows: Interpretation: Normal sinus rhythm rate of 71 MT 172 QRS 80 QTC 421. No acute ST elevation or depression appreciated. EKG 2 sinus rhythm rate of 65 MT 178 QRS is 70 QTC [address]. No acute [address] elevation depression. EKG 3. Sinus rhythm rate of 65 MT 174 QRS is 78 QTC [address]. No acute ST changes. MDM Narrative Medical decision making narrative: 78-year-old male who comes in with complaint of reflux taking Tums regularly but his pain is suprapubic, does not radiate elsewhere. He sometimes has chest discomfort but not any recently. Patient has labs, EKG are all negative for acute change. Urine sample shows no acute change. CT abdomen pelvis to rule out sigmoid diverticulitis or similar change. Acute changes. Patient states pain is currently gone. Discussed following up with primary care he asked if he should continue his Nexium were discussed for lower abdominal pain that should be GERD or reflux. States when he misses his Nexium for at least 2 days in a row he gets symptoms so would not stop it at this time but could discuss with his physician and they read about some of the side effects. Discussed return precautions. Discharge Plan Departure Patient Disposition: Home Clinical Impression: Abdominal pain Instructions: DI for Abdominal Pain-Adult Activity Restrictions/Additional Instructions: Please follow-up with your physician for recheck. Your workup today did not show any acute changes. You may take Tylenol up to a 1000 mg every 6 hours as needed for pain. Please return for new or worsening symptoms, fevers, worsening abdominal back or flank pain, chest pain or shortness of breath, passing out, black or bloody stools, persistent vomiting or other new or concerning changes. Prescriptions: No Action esomeprazole magnesium [Nexium] 20 mg capsule,delayed release(DR/EC) 20 mg PO DAILY Qty: 30 0RF Coenzyme Q10 (#CO Q-10) 200 mg PO QDAY Qty: 0 Cu/Se/Vit A/Vit C/Vit E/Zinc (#OCUVITE) 1 tab PO QDAY Qty: 0 Fish Oil (#OMEGA-3 FISH OIL) 1,200 mg PO QDAY Qty: 0 pravastatin 80 mg tablet 80 mg PO BEDTIME Qty: 90 3RF albuterol sulfate [Ventolin HFA] 90 mcg/actuation HFA aerosol inhaler 2 puff INHALATION Q4-6H PRN (Reason: shortness of breath or wheezing) Qty: 18 11RF ferrous sulfate 325 mg (65 mg iron) tablet 325 mg PO DAILY alpha lipoic acid 600 mg capsule 600 mg PO DAILY turmeric root extract 500 mg capsule 1,000 mg PO DAILY vitamin B complex [Super B-50 Complex] Capsule 1 cap PO DAILY mecobalamin (vitamin B12) 1,000 mcg tablet,chewable 1,000 mcg PO DAILY cholecalciferol (vitamin D3) 125 mcg (5,000 unit) capsule 125 mcg PO DAILY Primatene Mist 0.125 mg/actuation HFA aerosol inhaler 1 puff inhalation Q6H PRN (Reason: bronchodilation) Qty: 11.7 8RF Rx Instructions: may repeat once after 1 minute prednisone 5 mg tablet 5 mg PO DAILY latanoprost 0.005 % drops 1 drp EYE-BOTH DAILY Referrals: Denver Bhakta DO [Primary Care Provider] - Stand Alone Forms: Patient Portal/API
[2023-06-08] MEDS: ACETAMINOPHEN 325 MG TABLET 650 MG PO (10:16)
[2023-06-08 11:55] LABS: Troponin I < 0.012 ng/mL (0.01-0.034)
--- NOTE | 2023-06-08 13:20 | DI.CT.S_ITS ---
PROCEDURE: CT ABDOMEN PELVIS W CON INDICATIONS: lower abd pain, midline x 3 days not improving TECHNIQUE: After the administration of intravenous contrast, axial sections acquired from the lung bases to the pubic symphysis. Coronal and sagittal reformats were performed. For radiation dose reduction, the following was used: automated exposure control, adjustment of mA and/or kV according to patient size. COMPARISON: None. FINDINGS: Image quality: Excellent. Lung bases: Unremarkable. Heart: No significant findings. ABDOMEN: Liver: Unremarkable. Gallbladder: Unremarkable without calcified stones. Biliary ducts: Unremarkable. Pancreas: Unremarkable. Spleen: Unremarkable. Adrenal Glands: Bilateral adrenal hypertrophy, left greater than right. No suspicious mass.. Kidneys and Ureters: Unremarkable. Stomach and Bowel: Small hiatal hernia. Mild diverticulosis. Otherwise unremarkable. Peritoneum: No abnormal intraperitoneal fluid. No free air. Ventral Wall: No hernias. Abdominal Nodes: No retroperitoneal or mesenteric adenopathy by size criteria. Vessels: Aorta and inferior vena cava are normal in size. PELVIS: Pelvic Organs: Unremarkable. Bladder: Unremarkable. Pelvic Nodes: No enlarged lymph nodes. Miscellaneous: No hernias are seen. Bones: Lumbar degenerative change. No lytic or blastic bony lesions. No compression fractures. IMPRESSION: 1. No acute abdominal process. 2. Mild diverticulosis without evidence of diverticulitis. 3. Small hiatal hernia. Dictated by: Sebastian Rosario M.D. on 06/08/2023 at 13:57 Approved by: Sebastian Rosario M.D. on 06/08/2023 at 14:00
== END 2023-06-08 14:34 | disposition home or self-care (01) ==
PROVIDERS: Emergency Provider Emergency Medicine; PCP Family Medicine
DX: R10.30 Lower abdominal pain, unspecified (principal); R07.9 Chest pain, unspecified
CPT/HCPCS: 36415; 71045; 74177; 80053; 81003; 82550; 83690; 83735; 84484; 85025; 85610; 85730; 93005; 93010; 99284; Q9967

== ENCOUNTER → 2023-10-05 16:47 | Outpatient (CLI) | payer MEDICARE, OTHER, SELFPAY ==
--- NOTE | 2023-10-05 16:49 | DI.MRI.S_ITS ---
PROCEDURE: MR LUMBAR SPINE WO CON INDICATIONS: Multilevel lumbar stenosis TECHNIQUE: Noncontrast sagittal T1 spin echo and T2 fast echo, sagittal STIR, and T2 fast spin echo through the lumbar spine. In cases with scoliosis, additional coronal T2 fast spin echo may be performed. COMPARISON: [facility], CT, CT ABDOMEN PELVIS W CON, 06/08/2023, 13:30. FINDINGS: Image quality: Excellent. Alignment and Curvature: There is normal bony alignment. Bone Marrow: Marrow is of normal overall signal. No acute vertebral body compression fractures. Spinal Cord: Conus medullaris terminates at the L1 level. Visualized cord demonstrates normal signal and size. Paraspinous Soft Tissues: No paravertebral masses. This patient has transitional lumbar anatomy. For the purposes of this examination, the level with the last disc space is considered to be L5-S1. By this numbering scheme, there are tiny vestigial ribs at the T12 level, which are better demonstrated by CT. The L5 level is transitional and is highly sacralized. T11-T12: Moderate loss of disc height is seen. Loss of disc signal is seen. Bridging anterior osteophytes are seen. No neural foraminal or central canal narrowing can be seen. T12-L1: Bridging anterior osteophytes are seen. No neural foraminal narrowing or central canal narrowing can be seen. L1-L2: Level within normal limits. L2-L3: At least moderate loss of disc height and disc signal can be seen. Reactive marrow endplate changes are seen which are hypointense on T1-weighted imaging and hyperintense on T2 weighted imaging, which is most consistent with edema (Modic type I changes). Moderate disc bulge is seen, which is eccentric to the right. There is a central disc osteophyte protrusion seen. Moderate facet joint hypertrophy is seen. There is at least moderate right-sided and moderate left-sided neural foraminal narrowing. Moderate central canal narrowing is seen. L3-L4: Moderate loss of disc height is seen. Loss of disc signal is seen. Reactive marrow endplate changes are seen, which are hyperintense on T1-weighted and T2-weighted imaging and most consistent with fatty metaplasia (Modic type II changes). Moderate generalized disc bulge is seen. There is a central disc osteophyte protrusion seen. Mild facet joint hypertrophy is seen. There is moderate left-sided and at least moderate right-sided neural foraminal narrowing. At least moderate central canal narrowing can be seen at this level. L4-L5: At least moderate loss of disc height and disc signal can be seen. Moderate disc bulge is seen, which is eccentric to the left. There is a central disc osteophyte protrusion seen. Moderate facet joint hypertrophy is seen. At least moderate bilateral neural foraminal narrowing can be seen. Moderate central canal narrowing is seen. L5-S1: There is a transitional disc seen at this level. IMPRESSION: Multiple levels of significant lumbar spine degenerative change can be seen. 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 Dictated by: Kulwinder Tenorio M.D. on 10/05/2023 at 16:40 Approved by: Kulwinder Tenorio M.D. on 10/05/2023 at 16:45
== END ==
PROVIDERS: PCP Family Medicine; Referring Provider Physical Medicine & Rehabilitation; Visit Provider Physical Medicine & Rehabilitation
DX: M47.26 Other spondylosis with radiculopathy, lumbar region (principal); M47.27 Other spondylosis with radiculopathy, lumbosacral region
CPT/HCPCS: 72148

== ENCOUNTER → 2023-10-20 15:34 | Outpatient (CLI) | payer MEDICARE, OTHER, SELFPAY ==
--- NOTE | 2023-10-20 15:35 | DI.CT.S_ITS ---
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 7 mm thick axial MIP, and 5 mm coronal and sagittal reformats were then acquired. For radiation dose reduction, the following was used: automated exposure control, adjustment of mA and/or kV according to patient size. COMPARISON: None. FINDINGS: Image quality: Diagnostic. Lower Neck: No enlarged lymph nodes. Thyroid: There is a subcentimeter rim calcified nodule in the right thyroid lobe. Axillae: No enlarged lymph nodes. Chest Wall: Unremarkable. Bones: Unremarkable. Lungs and Pleura: No pneumothorax or pleural effusions. No consolidation or suspicious nodules. Heart: Heart size is normal. No pericardial effusion. Thoracic Vessels: The aorta and pulmonary arteries demonstrate normal size. Scattered atheromatous calcifications are present within the aortic arch. Mediastinum and [place]ly: No enlarged lymph nodes. Esophagus: No wall thickening. There is a small hiatal hernia. Upper Abdomen: Visualized upper abdomen solid organs and bowel loops appear normal. IMPRESSION: No suspicious pulmonary nodules. LUNG-RADS 1; continued annual screening, if eligible. Clinically Significant Non-pulmonary Findings: Aortic atherosclerosis. Dictated by: Torrie Gifford M.D. on 10/20/2023 at 17:05 Approved by: Torrie Gifford M.D. on 10/20/2023 at 17:14
== END ==
PROVIDERS: PCP Family Medicine; Referring Provider Family Medicine; Visit Provider Family Medicine
DX: F17.210 Nicotine dependence, cigarettes, uncomplicated (principal); J44.9 Chronic obstructive pulmonary disease, unspecified; I70.0 Atherosclerosis of aorta
CPT/HCPCS: 71250; 71271

== ENCOUNTER 2024-01-26 14:28 | Outpatient (CLI) | payer MEDICARE, OTHER, SELFPAY ==
--- NOTE | 2024-01-26 15:00 | DI.RAD.S_ITS ---
PROCEDURE: PAIN L/S FACET INJ/BLK 1ST NIKI INDICATIONS: Bilateral L3-L4 and L5 medial branch block LA COMPARISON: None. FINDINGS: Fluoroscopic spot filming was performed to verify placement of spinal needles at the bilateral L3, L4 and L5 level(s), as labeled on the films. Appropriate location(s) of the needle tip(s) was confirmed by injection of iodinated contrast. IMPRESSION: Intra procedural examination demonstrating appropriate positions of the needles. Dictated by: Goran Curry M.D. on 01/26/2024 at 16:24 Approved by: Goran Curry M.D. on 01/26/2024 at 16:25
[2024-01-26 15:10] VITALS: BP 130/68; PULSE 81; RESP 16; TEMP 36.4; O2SAT 96
[2024-01-26 15:37] VITALS: BP 134/77; PULSE 79; RESP 17; O2SAT 98
[2024-01-26 15:40] VITALS: BP 143/78; PULSE 78; RESP 17; O2SAT 97
[2024-01-26] MEDS: LIDOCAINE 1% 20 ML 5 ML INJ (15:43)
[2024-01-26] MEDS: iopamidoL 15 ML VIAL 3 ML INJ (15:43)
[2024-01-26] MEDS: BUPIVACAINE 0.5% (PF) 10 ML VIAL 5 ML INJ (15:44)
[2024-01-26 15:45] VITALS: BP 120/74; PULSE 80; RESP 17; O2SAT 97
[2024-01-26 15:50] VITALS: BP 148/80; PULSE 78; RESP 13; O2SAT 97
--- NOTE | 2024-01-26 15:59 | PM.PROC.IR.1 ---
Date/Time/Diagnoses Date of procedure: 01/26/24 Time of procedure: 15:59 Pre-procedure diagnosis: FACET ARTHROPATHY Post-procedure diagnosis: same Procedure Notes Procedure: 1. BILATERAL L3, L4 AND L5 DIAGNOSTIC MB BLOCKS Indications: Gavin is referred by Dr. Bhakta for treatment of Bilateral Axial LBP. Physician: Jason Manzanares Total Fluoroscopy time (seconds): 12 Total sedation minutes: 0 Complications: none Procedure in detail & Post-procedure care: DESCRIPTION OF PROCEDURE Fluoroscopically guided, contrast-controlled bilateral L3, L4 AND L5 medial branch blocks with 0.5cc of 0.5% Marcaine. Following review of allergy and review of potential side effects and complications, including, but not necessarily limited to, infection, allergic reaction, local tissue breakdown, nerve injury, paralysis, stroke and possible , the patient indicated that the patient understood and agreed to proceed. An informed consent document was signed by the patient, witnessed by a nurse, and placed in the patient's chart. After review of previous anaesthesic history and IV conscious sedation the patient was deemed safe to proceed with today's procedure with IV conscious sedation as ASA class II designation. Safety time-out was performed to confirm patient ID, procedure to be performed and site of procedure. IV sedation was not administered by the RN after DO order, titrated to patient comfort during the course of the procedure while the patient remained responsive to all verbal commands In the prone position, following sterile prep and drape of the lumbar region, the right L3, L4 AND L5 anatomical location of the medial branch of the dorsal ramus was identified fluoroscopically. Subsequently an anesthetic skin wheal using 1% lidocaine solution was initiated at each of the anatomical spots. Subsequently then a 22-gauge 3.5-inch spinal needle was atraumatically introduced and advanced under fluoroscopic guidance at each of the corresponding sites at the right L3, L4 and L5 MB. After negative aspiration, 0.2cc of Isovue 200 was injected, confirming placement without vascular or intrathecal uptake. Subsequently then 0.5cc of 0.5% Marcaine solution was injected at each of the corresponding sites at the right L3, L4 and L5 medial branch locations. The identical procedure was replicated on the left. The patient tolerated the procedure well without signs or symptoms of complications. The patient tolerated the procedure well without signs or symptoms of complications prior to transfer to the recovery area continued monitoring without incident. Post-procedure, the patient was monitored initiating provocative activities to measure the amount of relief from block of the facetogenic pain. The patient reported a VAS of 7 prior to the procedure and a post-procedure VAS of 1. It has been a pleasure to assist in the diagnostic and therapeutic care of your patient. POST OP INSTRUCTIONS The patient was provided with a Pain Log to complete over the next several hours and subsequent days prior to the patient's follow up with the ordering physician. If the patient has industrial refrigeration mechanic relief to the solution applied, then they may be a candidate for medial branch rhizotomy. The patient is aware, was provided, once again, with a Pain Log and will follow up with the referring physician for review and clinical correlation
[2024-01-26 16:00] VITALS: BP 161/77; PULSE 83; RESP 18; O2SAT 97
== END 2024-01-26 16:02 | disposition home or self-care (01) ==
PROVIDERS: PCP Family Medicine; Referring Provider Physical Medicine & Rehabilitation; Visit Provider Physical Medicine & Rehabilitation
DX: M47.816 Spondylosis without myelopathy or radiculopathy, lumbar region (principal)
CPT/HCPCS: 64493; 64494

== ENCOUNTER → 2024-02-02 05:58 | Outpatient (CLI) | payer MEDICARE, OTHER, SELFPAY ==
[2024-02-02 08:45] LABS: Add Manual Diff / Slide Review NO; Basophils Absolute Auto 0 /uL (0-100); Basophils Percent Auto 0.5 % (0-2); Eosinophils Absolute Auto 100 /uL (0-450); Eosinophils Percent Auto 2.3 % (2-4); Hematocrit 42.3 % (41-53); Hemoglobin 14.3 g/dL (13.5-17.5); Lymphocytes Absolute Auto 1200 /uL (1100-4500); Lymphocytes Percent Auto 19.1 % (25-40); Mean Corpuscular HGB Conc 33.7 % (30-36); Mean Corpuscular Hemoglobin 28.6 PG (26-34); Mean Corpuscular Volume 84.9 fL (80-100); Monocytes Absolute Auto 600 /uL (0-900); Monocytes Percent Auto 9.7 % (3-14); Neutrophils Absolute Auto 4200 /uL (1500-7000); Neutrophils Percent Auto 68.4 % (50-75); Platelet Count 201 X10^3/uL (150-400); Red Blood Cell Count 4.99 X10^6/uL (4.5-5.9); Red Cell Distribution Width 14.3 % (11.6-14.8); White Blood Cell Count 6.1 X10^3/uL (4.5-11.0)
[2024-02-02 09:28] LABS: Alanine Aminotransferase 23 IU/L (<50); Albumin Globulin Ratio 1.8 (1.0-2.8); Alkaline Phosphatase 85 U/L (38-126); Aspartate Aminotransferase 27 IU/L (17-59); BUN Creatinine Ratio 22.7 (6-22); Bilirubin Total 0.6 mg/dL (0.2-1.3); Blood Urea Nitrogen 17 mg/dL (9-20); Calcium 8.7 mg/dL (8.4-10.2); Carbon Dioxide 26 mmol/L (22-32); Chloride 109 mmol/L (98-107); Cholesterol 200 mg/dL (140-199); Estimated Glomerular Filt Rate > 60 mL/min (>60); Globulin 2.2 g/dL (1.7-4.1); Glucose 97 mg/dL (80-110); HDL Cholesterol 40 mg/dL (40-60); HEMOLYSIS < 15 (0-50); LDL Cholesterol Calculated 131 mg/dL (<100); Potassium 4.6 mmol/L (3.4-5.1); Sodium 141 mmol/L (137-145); Total Protein 6.2 g/dL (6.3-8.2); Triglycerides 144 mg/dL (35-150)
[2024-02-02 09:50] LABS: Prostate Specific Antigen Scrn 0.949 ng/mL (0.1-4.0)
[2024-02-02 10:09] LABS: Vitamin B12 766 pg/mL (239-931)
== END ==
LOC: LAB 06:00
PROVIDERS: PCP Family Medicine; Referring Provider Family Medicine; Visit Provider Family Medicine
DX: M13.0 Polyarthritis, unspecified (principal); E78.5 Hyperlipidemia, unspecified; Z12.5 Encounter for screening for malignant neoplasm of prostate; G62.9 Polyneuropathy, unspecified
CPT/HCPCS: 36415; 80053; 80061; 82607; 85025; G0103

== ENCOUNTER 2024-04-08 01:21 | Emergency (ER) | payer MEDICARE, OTHER, SELFPAY ==
[2024-04-08 01:30] VITALS: BP 169/85; PULSE 95; RESP 22; TEMP 37.6; O2SAT 98; BMI 30.4
--- NOTE | 2024-04-08 01:41 | DI.RAD.S_ITS ---
PROCEDURE: XR RIBS LT MIN 3V W CXR1V INDICATIONS: Rib pain, shallow resps TECHNIQUE: 2 views of the ribs were acquired, along with a single view chest. COMPARISON: None. FINDINGS: Surgical changes and devices: None. Bones and chest wall: No fractures or dislocations. No suspicious bony lesions. Overlying soft tissues appear unremarkable. Lungs and pleura: No pleural effusions or pneumothorax. Lungs appear clear. Mediastinum: Mediastinal contours appear normal. Heart size is normal. IMPRESSION: No displaced rib fracture or pneumothorax. Dictated by: David Brandt M.D. on 04/08/2024 at 1:54 Approved by: David Brandt M.D. on 04/08/2024 at 1:55
--- NOTE | 2024-04-08 02:13 | ED_ITS ---
HPI - General Adult General Chief complaint: Shortness of Breath/Dyspnea Stated complaint: hard time breathing deeply, lower lung area hurts Time Seen by Provider: 04/08/24 01:32 Source: patient and family Mode of arrival: Ambulatory History of Present Illness HPI narrative: 79-year-old gentleman with a history of COPD, hyperlipidemia, reflux, polymyalgia presents with left lower rib pain causing splinting while breathing which is making him feel short of breath. This has been ongoing for approximately 24 hours, was bothering him all who was lying in bed and comes in for further evaluation. He notes that he can make it better with positioning. In retrospect he also recalls an episode 3-4 days ago where he was twisting and leaning to the left felt a pulling in the area of concern. He has not complaining of cardiac chest pain, palpitations, fevers. No change to his baseline cough no abdominal pain nausea vomiting diarrhea. No increased lower extremity edema Related Data Home Medications Medication Instructions Recorded Confirmed Coenzyme Q10 (#CO Q-10) 200 mg PO QDAY ##0 07/01/11 03/08/24 Cu/Se/Vit A/Vit C/Vit E/Zinc 1 tab PO QDAY ##0 07/01/11 03/08/24 (#OCUVITE) Fish Oil (#OMEGA-3 FISH OIL) 1,200 mg PO QDAY ##0 08/07/11 03/08/24 cholecalciferol (vitamin D3) 125 125 mcg PO DAILY 10/02/20 03/08/24 mcg (5,000 unit) capsule ferrous sulfate 325 mg (65 mg 325 mg PO DAILY 10/02/20 03/08/24 iron) tablet turmeric root extract 500 mg 1,000 mg PO DAILY 10/02/20 03/08/24 capsule latanoprost 0.005 % eye drops 1 drp EYE-BOTH DAILY 11/14/22 03/08/24 vit C 250 mg-vit E 200 unit-zinc 250 cap PO DAILY eyes 09/30/23 03/08/24 ox 12.5 [id number] capsule (ICaps AREDS2) Previous Rx's Medication Instructions Recorded esomeprazole magnesium 20 mg 20 mg PO DAILY #30 caps 02/09/18 capsule,delayed release (Nexium) albuterol sulfate 90 mcg/actuation 2 puff inhalation Q4-6H PRN 10/26/19 aerosol inhaler (Ventolin HFA) shortness of breath or wheezing #18 grams epinephrine 0.125 mg/actuation 1 puff inhalation Q6H PRN 04/15/22 aerosol inhaler (Primatene Mist) bronchodilation #11.7 grams pravastatin 80 mg tablet 80 mg PO BEDTIME #90 tabs 06/05/23 budesonide-formoterol HFA 80 1 inh inhalation ONCE #10.2 grams 11/05/23 mcg-4.5 mcg/actuation aerosol inhaler cyclobenzaprine 10 mg tablet 10 mg PO BID PRN muscle spasm #60 12/28/23 tabs Allergies Allergy/AdvReac Type Severity Reaction Status Date / Time bee venom protein (honey bee) Allergy Severe TROUBLE Verified 03/08/24 09:59 [BEE VENOM PROTEIN (HONEY BREATHING BEE)] Review of Systems Review of Systems Narrative: Pertinent positive and negative findings as per HPI Patient History Medical History Incidentaloma of thyroid gland FREEDMAN (dyspnea on exertion) Smoking greater than 25 pack years COPD exacerbation Lumbar stenosis with neurogenic claudication Facet arthropathy, lumbar Skin tags, multiple acquired Episodic lightheadedness Wheezing Strain of left piriformis muscle Iliotibial band syndrome, left leg Cervical radiculopathy Stiff neck Bilateral hand swelling Bilateral hand pain Excessive cerumen in both ear canals Postoperative pain of right knee Absence attack Back stiffness Thoracic region somatic dysfunction Cervical somatic dysfunction Acute neck pain Pes planus of both feet Somatic dysfunction of lower extremity Segmental and somatic dysfunction of abdomen and other regions Sacral region somatic dysfunction Pelvic somatic dysfunction Lumbar region somatic dysfunction History of iron deficiency Rheumatoid arthritis (2007) Chronic back pain (~1970) Sleep apnea (Unknown) Right wrist pain Ear canal dryness COPD (chronic obstructive pulmonary disease) (2013) Hearing loss Tinnitus Chronic low back pain Hyperlipidemia GERD (gastroesophageal reflux disease) Allergic rhinitis (Unknown) BPH (benign prostatic hyperplasia) (Unknown) Hyperlipemia (Unknown) Polymyalgia rheumatica (2014) Osteoarthritis (Unknown) Chickenpox (1953) Measles (1954) Mumps (1955) Tinnitus of both ears (1966) Hearing loss (1966) Colon polyps (1997) GERD (gastroesophageal reflux disease) (1999) Polymyalgia rheumatica (05/25/14) Vitreous detachment Gastric ulcer Surgical History Status post right partial knee replacement History of surgery on arm History of carpal tunnel release (2016) Hx of transurethral resection of prostate (2010) History of vasectomy Family History Mother Heart disease Father No problems noted. Social History marital status: household members: spouse lives independently: Yes education level: college Smoking Status: Former smoker alcohol intake: current substance use type: does not use Smoking Status: Former smoker alcohol intake frequency: a few times a week Substance Use Type: does not use Exam Initial Vital Signs Initial Vital Signs: Vital Signs Temperature 99.6 F 04/08/24 01:30 Pulse Rate 95 H 04/08/24 01:30 Respiratory Rate 22 04/08/24 01:30 Blood Pressure 169/85 H 04/08/24 01:30 Pulse Oximetry 98 04/08/24 01:30 Oxygen Delivery Method Room Air 04/08/24 01:30 General: Healthy appearing, in no acute distress. Able to give a complete and coherent history. Well-nourished well-developed HEENT: Moist mucous membranes, normal sclera with reactive pupils, Respiratory: Lungs are clear to auscultation, no wheezing no rales no rhonchi. Full and symmetrical air movement. Point tenderness along left anterior axillary line to posterior axillary line lower ribs with palpation Cardiac: Regular rate and rhythm no murmurs no bruits Abdomen: Soft, nontender, good bowel tones, no flank pain Skin: Warm and dry, no rashes Neurologic: Grossly neurologically intact with no obvious asymmetries or abnormalities Extremities: No trauma, well perfused Psych: Cooperative, appropriate insight and affect Course Orders Ordered: ED Orders 04/08/24 01:41 XR ribs LT min 3V w CXR1V Stat Vital Signs Vital signs: Vital Signs - 8 hr 04/08/24 01:30 Temperature 99.6 F Pulse Rate 95 H Respiratory Rate 22 Blood Pressure 169/85 H Pulse Oximetry 98 Oxygen Delivery Method Room Air Medical Decision Making MDM Narrative Medical decision making narrative: CC: Left-sided lower rib pain Complicating co-morbidities: History of COPD Data collected from: patient Medical records reviewed: Recent primary care notes reviewed Differential considered: Pneumothorax, rib fractures, intercostal muscle separation, pneumonia, pulmonary embolism Exam documented above, pertinent findings include: Minor point tenderness along lower ribs in the axillary line distribution left side. No skin changes to sugg est shingles. Full and symmetrical breathing without wheezing or retractions Imaging studies independently reviewed: Chest x-ray shows no pneumothorax, no significant infiltrates, findings consistent with COPD, no fractures Treatments: Oral prednisone for inflammation given He has given an incentive spirometer Discussion: 79-year-old gentleman with musculoskeletal left-sided rib pain no evidence of cardiac event, pneumothorax, pneumonia, severe COPD exacerbation or significant pleurisy. He has given an incentive spirometer to prevent atelectasis, we talked about ibuprofen and Tylenol for pain control, he has given a single dose of prednisone in the emergency department to help with inflammatory pain. There was no indication for additional blood work further imaging or hospitalization. Questions are answered and he is safe for discharge Discharge Plan Departure Patient Disposition: Home Clinical Impression: Rib pain on left side Instructions: DI for Rib Fracture Activity Restrictions/Additional Instructions: Thank you for coming in tonight Your chest x-ray does not show a collapsed lung, developing pneumonia, rib fracture or other significant pathology. I suspect that the pain that you are experiencing is pulled muscles between the ribs. Using 400 mg of ibuprofen (2 [id number]-[id number]-icxuvwn pills) and 1 Tylenol every 6 hours can be very helpful in controlling pain. I have given you a single dose of prednisone in the emergency department this evening to help with inflammatory type pain. I have also given you an incentive spirometer to use. Please do 2-4 puffs every couple of hours to make sure that you are making a point of actively completely expanding your lungs. When you were hurting it is easy to take small shallow breaths and then the lung tissue collapses which puts you at risk for developing a pneumonia. If you find that you are getting worse or develop any new symptoms, please feel free to return to the emergency department for further evaluation. Prescriptions: No Action esomeprazole magnesium [Nexium] 20 mg capsule,delayed release(DR/EC) 20 mg PO DAILY Qty: 30 0RF Coenzyme Q10 (#CO Q-10) 200 mg PO QDAY Qty: 0 Cu/Se/Vit A/Vit C/Vit E/Zinc (#OCUVITE) 1 tab PO QDAY Qty: 0 Fish Oil (#OMEGA-3 FISH OIL) 1,200 mg PO QDAY Qty: 0 pravastatin 80 mg tablet 80 mg PO BEDTIME Qty: 90 3RF albuterol sulfate [Ventolin HFA] 90 mcg/actuation HFA aerosol inhaler 2 puff INHALATION Q4-6H PRN (Reason: shortness of breath or wheezing) Qty: 18 11RF ferrous sulfate 325 mg (65 mg iron) tablet 325 mg PO DAILY turmeric root extract 500 mg capsule 1,000 mg PO DAILY cholecalciferol (vitamin D3) 125 mcg (5,000 unit) capsule 125 mcg PO DAILY budesonide-formoterol 80-4.5 mcg/actuation HFA aerosol inhaler 1 inh inhalation ONCE Qty: 10.2 11RF Primatene Mist 0.125 mg/actuation HFA aerosol inhaler 1 puff inhalation Q6H PRN (Reason: bronchodilation) Qty: 11.7 8RF Rx Instructions: may repeat once after 1 minute latanoprost 0.005 % drops 1 drp EYE-BOTH DAILY cyclobenzaprine 10 mg tablet 10 mg PO BID PRN (Reason: muscle spasm) Qty: 60 1RF ICaps AREDS2 250 mg-200 unit -12.5 mg-1 mg capsule 250 cap PO DAILY Referrals: Denver Bhakta DO [Primary Care Provider] - Stand Alone Forms: Patient Portal/API
[2024-04-08] MEDS: predniSONE 20 MG TABLET 40 MG PO (02:36)
[2024-04-08 02:51] VITALS: BP 148/77; PULSE 82; RESP 18; O2SAT 98
== END 2024-04-08 02:54 | disposition home or self-care (01) ==
PROVIDERS: Emergency Provider Emergency Medicine; PCP Family Medicine
DX: R07.81 Pleurodynia (principal)
CPT/HCPCS: 71101; 99283

== ENCOUNTER → 2024-09-14 14:55 | Outpatient (CLI) | payer MEDICARE, OTHER, SELFPAY ==
[2024-09-14 19:23] LABS: Influenza A - CEPHEID Flu A POSITIVE (NEGATIVE); Influenza B - CEPHEID Flu B NEGATIVE (NEGATIVE); Respiratory Syncytial Virus Negative (Negative)
[2024-09-14 19:27] LABS: COVID-19 CEPHEID 4-PLEX PCR Negative (Negative)
== END ==
PROVIDERS: PCP Family Medicine; Visit Provider Physician Assistant
DX: R05.1 Acute cough (principal)
CPT/HCPCS: 0241U

== ENCOUNTER → 2024-09-21 14:42 | Outpatient (CLI) | payer MEDICARE, OTHER, SELFPAY ==
--- NOTE | 2024-09-21 15:28 | DI.US.S_ITS ---
PROCEDURE: US ABDOMEN LIMITED INDICATIONS: RIGHT INGUINAL LUMP, DIASTASIS OF RECTUS ABDOMINUS TECHNIQUE: Real-time focused scanning was performed of the abdominal wall, with image documentation. COMPARISON: None. FINDINGS: No hernia identified. No fluid collection. No mass seen. IMPRESSION: No hernia demonstrated. CT abdomen pelvis with IV contrast could be considered for further evaluation. Dictated by: Mandeep Linares M.D. on 09/22/2024 at 10:21 Approved by: Mandeep Linares M.D. on 09/22/2024 at 10:23
== END ==
PROVIDERS: PCP Family Medicine; Referring Provider Physician Assistant; Visit Provider Physician Assistant
DX: R19.09 Other intra-abdominal and pelvic swelling, mass and lump (principal); M62.08 Separation of muscle (nontraumatic), other site
CPT/HCPCS: 76705

== ENCOUNTER → 2024-09-26 09:25 | Outpatient (CLI) | payer MEDICARE, OTHER, SELFPAY ==
--- NOTE | 2024-09-26 09:26 | DI.CT.S_ITS ---
PROCEDURE: CT ABDOMEN PELVIS W CON INDICATIONS: intermittent chronic pain to right pelvic/inguinal area TECHNIQUE: After the administration of intravenous contrast, axial sections acquired from the lung bases to the pubic symphysis. Coronal and sagittal reformats were performed. For radiation dose reduction, the following was used: automated exposure control, adjustment of mA and/or kV according to patient size. COMPARISON: [facility], CT, CT ABDOMEN PELVIS W CON, 06/08/2023, 13:30. FINDINGS: Image quality: Diagnostic. Lower Chest: No significant findings. ABDOMEN: Liver: No solid mass. Gallbladder: No radiopaque gallstones or wall thickening. Biliary ducts: No biliary dilation. Pancreas: No ductal dilation. Spleen: Size is within normal limits. Adrenal Glands: No adrenal nodules. Kidneys and Ureters: No hydronephrosis. No solid mass. No complex renal cystic lesion which requires follow up. Stomach and Bowel: Normal colonic caliber, without significant wall thickening. Mild diverticulosis without evidence of acute diverticulitis. Peritoneum: No abnormal intraperitoneal fluid. No free air. Ventral Wall: No significant ventral hernia. Abdominal Nodes: No retroperitoneal or mesenteric adenopathy by size criteria. Vessels: Aorta and inferior vena cava are normal in size. PELVIS: Pelvic Organs: Unremarkable. Bladder: No bladder wall thickening, accounting for underdistention. Pelvic Nodes: No enlarged lymph nodes. Miscellaneous: No inguinal hernias are seen. Bones: No aggressive osseous abnormality. Lumbar degenerative change. IMPRESSION: No acute abdominal process. Dictated by: Sebastian Rosario M.D. on 09/26/2024 at 15:15 Approved by: Sebastian Rosario M.D. on 09/26/2024 at 15:19
[2024-09-26 09:56] LABS: Estimated Glomerular Filt Rate > 60 mL/min (>60)
[2024-09-26 10:00] LABS: Alanine Aminotransferase 31 IU/L (<50); Albumin 4.4 g/dL (3.5-5.0); Albumin Globulin Ratio 1.5 (1.0-2.8); Alkaline Phosphatase 69 U/L (38-126); Aspartate Aminotransferase 31 IU/L (17-59); BUN Creatinine Ratio 21.3 (6-22); Bilirubin Total 0.6 mg/dL (0.2-1.3); Blood Urea Nitrogen 19 mg/dL (9-20); Calcium 9.4 mg/dL (8.4-10.2); Carbon Dioxide 25 mmol/L (22-32); Chloride 106 mmol/L (98-107); Cholesterol 190 mg/dL (140-199); Estimated Glomerular Filt Rate > 60 mL/min (>60); Glucose 126 mg/dL (80-110); HDL Cholesterol 34 mg/dL (40-60); HEMOLYSIS < 15 (0-50); LDL Cholesterol Calculated 118 mg/dL (<100); Potassium 4.1 mmol/L (3.4-5.1); Sodium 139 mmol/L (137-145); Total Protein 7.4 g/dL (6.3-8.2); Triglycerides 191 mg/dL (35-150)
== END ==
PROVIDERS: Radiology Diagnostic Radiology; PCP Family Medicine; Referring Provider Physician Assistant; Visit Provider Physician Assistant
DX: R10.30 Lower abdominal pain, unspecified (principal); K57.90 Diverticulosis of intestine, part unspecified, without perforation or abscess without bleeding; E78.5 Hyperlipidemia, unspecified; M47.816 Spondylosis without myelopathy or radiculopathy, lumbar region
CPT/HCPCS: 36415; 74177; 80053; 80061; 82565; Q9967

== ENCOUNTER 2025-01-16 07:26 | Emergency (ER) | payer MEDICARE, OTHER, SELFPAY ==
[2025-01-16 07:45] VITALS: BP 157/74; PULSE 78; RESP 16; TEMP 36.6; O2SAT 96; BMI 29.5
[2025-01-16 07:59] LABS: Strep Grp A by PCR Rapid Negative (Negative)
[2025-01-16 08:30] LABS: Influenza A - CEPHEID Flu A NEGATIVE (NEGATIVE); Influenza B - CEPHEID Flu B NEGATIVE (NEGATIVE); Respiratory Syncytial Virus Negative (Negative)
[2025-01-16 08:31] LABS: COVID-19 CEPHEID 4-PLEX PCR Negative (Negative)
--- NOTE | 2025-01-16 09:09 | ED.URI ---
HPI - URI/Sore Throat General Chief Complaint: Upper Respiratory Symptoms Stated Complaint: possible strep throat x3 days Time Seen by Provider: 01/16/25 09:09 History of Present Illness HPI Narrative: 80-year-old male with 3 days' duration of sore throat, dry cough, nasal congestion, postnasal drip sensation. Currently not on antibiotics. Denies chest pain shortness of breath. No nausea or vomiting, no diarrhea. No fevers. No known exposure to persons with COVID or influenza reported. Related Data Home Medications Medication Instructions Recorded Confirmed Coenzyme Q10 (#CO Q-10) 200 mg PO QDAY ##0 07/01/11 09/14/24 Cu/Se/Vit A/Vit C/Vit E/Zinc 1 tab PO QDAY ##0 07/01/11 09/14/24 (#OCUVITE) cholecalciferol (vitamin D3) 125 125 mcg PO DAILY 10/02/20 09/14/24 mcg (5,000 unit) capsule ferrous sulfate 325 mg (65 mg 325 mg PO DAILY 10/02/20 09/14/24 iron) tablet turmeric root extract 500 mg 1,000 mg PO DAILY 10/02/20 09/14/24 capsule latanoprost 0.005 % eye drops 1 drp EYE-BOTH DAILY 11/14/22 09/14/24 vit C 250 mg-vit E 200 unit-zinc 250 cap PO DAILY eyes 09/30/23 09/14/24 ox 12.5 [id number] capsule (ICaps AREDS2) Fish Oil (#OMEGA-3 FISH OIL) 2,400 mg PO QDAY ##0 12/02/24 Previous Rx's Medication Instructions Recorded esomeprazole magnesium 20 mg 20 mg PO DAILY #30 caps 02/09/18 capsule,delayed release (Nexium) budesonide-formoterol HFA 80 1 inh inhalation ONCE #10.2 grams 11/05/23 mcg-4.5 mcg/actuation aerosol inhaler pravastatin 80 mg tablet 80 mg PO ONCE PM #90 tabs 11/29/24 Allergies Allergy/AdvReac Type Severity Reaction Status Date / Time bee venom protein (honey bee) Allergy Severe TROUBLE Verified 12/02/24 09:21 [BEE VENOM PROTEIN (HONEY BREATHING BEE)] Patient History Medical History (Updated 01/16/25 @ 09:29 by Alfred Longoria MD) BMI 31.0-31.9,adult Sebaceous cyst Incidentaloma of thyroid gland Smoking greater than 25 pack years COPD exacerbation Lumbar stenosis with neurogenic claudication Facet arthropathy, lumbar Skin tags, multiple acquired Episodic lightheadedness Wheezing Strain of left piriformis muscle Iliotibial band syndrome, left leg Cervical radiculopathy Stiff neck Bilateral hand swelling Bilateral hand pain Excessive cerumen in both ear canals Postoperative pain of right knee Absence attack Back stiffness Thoracic region somatic dysfunction Cervical somatic dysfunction Acute neck pain Pes planus of both feet Somatic dysfunction of lower extremity Segmental and somatic dysfunction of abdomen and other regions Sacral region somatic dysfunction Pelvic somatic dysfunction Lumbar region somatic dysfunction History of iron deficiency Rheumatoid arthritis (2007) Chronic back pain (~1970) Sleep apnea (Unknown) Right wrist pain Ear canal dryness COPD (chronic obstructive pulmonary disease) (2012) Hearing loss Tinnitus Chronic low back pain Hyperlipidemia GERD (gastroesophageal reflux disease) Allergic rhinitis (Unknown) BPH (benign prostatic hyperplasia) (Unknown) Hyperlipemia (Unknown) Polymyalgia rheumatica (2013) Osteoarthritis (Unknown) Chickenpox (1953) Measles (1954) Mumps (1955) Tinnitus of both ears (1966) Hearing loss (1966) Colon polyps (1997) GERD (gastroesophageal reflux disease) (1999) Polymyalgia rheumatica (05/25/14) Vitreous detachment Gastric ulcer Surgical History Status post right partial knee replacement History of surgery on arm History of carpal tunnel release (2015) Hx of transurethral resection of prostate (2010) History of vasectomy Family History Mother Heart disease Father No problems noted. Social History marital status: household members: spouse lives independently: Yes education level: college alcohol intake: current substance use type: does not use alcohol intake frequency: a few times a week Exam Narrative Exam Narrative: GENERAL: Well-developed patient, in mild distress. HEAD: Atraumatic. Normocephalic. EYES: Pupils equal round and reactive. Extraocular motions intact. No scleral icterus. No injection or drainage. ENT: Nose without bleeding, purulent drainage. Throat without erythema, tonsillar hypertrophy or exudate. Airway patent. NECK: Trachea midline. Non tender CARDIOVASCULAR: Regular rate and rhythm without murmurs, gallops, or rubs. RESPIRATORY: Clear to auscultation. Breath sounds equal bilaterally. No wheezes, rales, or rhonchi. GASTROINTESTINAL: Abdomen soft, non-tender, nondistended. EXTREMITIES: No edema or joint tenderness. BACK: Nontender without deformity or crepitance. No flank tenderness. NEURO: AOx3. Motor functions grossly nonfocal SKIN: No rash or erythema of visible areas Initial Vital Signs Initial Vital Signs: Vital Signs Temperature 97.9 F 01/16/25 07:45 Pulse Rate 78 01/16/25 07:45 Respiratory Rate 16 01/16/25 07:45 Blood Pressure 157/74 H 01/16/25 07:45 Pulse Oximetry 96 01/16/25 07:45 Oxygen Delivery Method Room Air 01/16/25 07:45 Course Orders Ordered: ED Orders 01/16/25 07:42 Covid-19 + FLU A/B + RSV - PCR Stat Strep Grp A by PCR Rapid Stat Throat Culture Stat Vital Signs Vital signs: Vital Signs - 8 hr 01/16/25 07:45 Temperature 97.9 F Pulse Rate 78 Respiratory Rate 16 Blood Pressure 157/74 H Pulse Oximetry 96 Oxygen Delivery Method Room Air MDM - URI/Sore Throat Lab Data Attestation: I reviewed the patient's lab results. Lab results narrative: Negative COVID, flu, RSV. Strep screen negative. Labs: Lab Results 01/16/25 Range/Units 07:42 SARS-CoV-2 (PCR) Negative (Negative) Influenza A (RT-PCR) Flu a negative (NEGATIVE) Influenza B (RT-PCR) Flu b negative (NEGATIVE) RSV (PCR) Negative (Negative) Group A Strep (PCR) Negative (Negative) MDM Narrative Medical decision making narrative: 80-year-old male with URI symptoms and pharyngitis, oropharynx unremarkable. Speaks in full sentences, no respiratory distress, no oxygen requirement. Screening studies sent from triage included rapid strep which was negative, COVID/RSV/influenza also negative. We discussed symptomatic treatments [id number]. Discharged home. Return precautions discussed. Discharge Plan Departure Patient Disposition: Home Clinical Impression: Upper respiratory infection Activity Restrictions/Additional Instructions: Recent 3 days nonproductive cough, sore throat, some postnasal drip. Suspicious for viral illness. Viral swab sent for COVID and RSV and influenza was negative, could be some other virus not in that panel, though there no specific treatments for viral illness, treatment is supportive. Rapid strep screen was negative. No redness or lesions on oral pharyngeal physical exam. We discussed Tylenol as needed for fever control. Consider Robitussin with dextromethorphan or generic equivalent for control of cough if needed. You could consider decongestants however this could raise your blood pressure. You could consider antihistamines although this could have urinary retention side effects. Drink plenty of fluids. Recheck with your regular doctor if not improving in the next couple of days. Return earlier to this/nearest emergency department for any change worsening symptoms or any concerns prior. Prescriptions: No Action esomeprazole magnesium [Nexium] 20 mg capsule,delayed release(DR/EC) 20 mg PO DAILY Qty: 30 0RF Coenzyme Q10 (#CO Q-10) 200 mg PO QDAY Qty: 0 Cu/Se/Vit A/Vit C/Vit E/Zinc (#OCUVITE) 1 tab PO QDAY Qty: 0 pravastatin 80 mg tablet 80 mg PO ONCE PM Qty: 90 0RF Fish Oil (#OMEGA-3 FISH OIL) 2,400 mg PO QDAY Qty: 0 ferrous sulfate 325 mg (65 mg iron) tablet 325 mg PO DAILY turmeric root extract 500 mg capsule 1,000 mg PO DAILY cholecalciferol (vitamin D3) 125 mcg (5,000 unit) capsule 125 mcg PO DAILY budesonide-formoterol 80-4.5 mcg/actuation HFA aerosol inhaler 1 inh inhalation ONCE Qty: 10.2 11RF latanoprost 0.005 % drops 1 drp EYE-BOTH DAILY ICaps AREDS2 250 mg-200 unit -12.5 mg-1 mg capsule 250 cap PO DAILY Referrals: Denver Bhakta DO [Primary Care Provider] - Stand Alone Forms: Patient Portal/API/Survey
--- NOTE | 2025-01-16 09:21 | PC.NURSE ---
Pt has frequent dry cough. Reports pain to throat.
== END 2025-01-16 09:34 | disposition home or self-care (01) ==
PROVIDERS: Emergency Provider Emergency Medicine; PCP Family Medicine
DX: J06.9 Acute upper respiratory infection, unspecified (principal)
CPT/HCPCS: 0241U; 87070; 87651; 99281; 99282